=== PATIENT | male | born 1930 | race Caucasian/White ===

== ENCOUNTER 2016-11-11 12:13 | Inpatient (IN) | payer MEDICARE ==
[~2016-11-11] VITALS: Ht 188 cm; Wt 88.3 kg
[2016-11-11] VITALS (11 sets, daily range): BP systolic 88–123; BP diastolic 44–64; PULSE 64–82; RESP 15–24; O2SAT 95–100
[~2016-11-11 12:13] MED LIST: ALBUINHPP INH; FUR80 PO; PROT40T PO; SYMINH INH; ZES5; [UNRECOGNIZED DRUG - REMARK] INH; [UNRECOGNIZED DRUG - REMARK] ORAL
--- NOTE | 2016-11-11 12:39 | ED.REPORT ---
HPI-General Illness Date of Service Nov 11, 2016 ED Provider: Dr. Peralta The pt is an 86 y/o male with a hx of frequent falls recently, COPD, CHF, HTN, and A-fib who presents to the ED from [place] complaining of multiple falls in the past week. The pt fell out of bed a few days ago and reports a nose injury. Associated sx include bruising on the face and on both arms. He did not lose consciousness. His alcohol level is zero. Nursing Notes Stated Complaint: MULTIPLE FALLS Chief Complaint: Multiple Trauma/Fall Nursing Notes Reviewed: Yes Allergies: Coded Allergies: oxycodone (Verified Allergy, Unknown, 11/11/16) prednisone (Verified Allergy, Unknown, 11/11/16) Scheduled ([Second HTN Med]) 1 TAB ORAL DAILY ([second inhaler]) 2 PUFFS INH BID Albuterol-Expunged Drug, Do Not Renew! (Albuterol-Expunged Drug, Do Not Renew!) 90 Mcg Puff 2 PUFFS INH Q4 Gnisk-Cdyabh-Snuwraox Drug, Do Not Renew! (Symbicort 160/4.5mcg-Expunged Drug, Do Not R) 1 Puff Inha 1 PUFF INH DAILY PRIME WITH 1 PUMP PRIOR TO INITIAL USE. *SHAKE WELL*RINSE MOUTH AFTER EACH USE* Furosemide-Expunged Drug, Do Not Renew! (Furosemide-Expunged Drug, Do Not Renew! ) 80 Mg Tablet 80 MG PO DAILY Take one tablet daily Pantoprazole-Expunged Drug, Do Not Renew! (Protonix-Expunged Drug, Do Not Renew! ) 40 Mg Tablet. 40 MG PO BID 40 MG Miscellaneous Medications ([Lisinopril]) General Time Seen by MD: 12:38 Chief Complaint Other (multiple falls) Hx Obtained From: Patient Arrived By: Walk-in Sudden in Onset?: Yes Onset Occurred: 1 week ago Symptom Duration: 1 week Location: : Nose Quality: Painful Radiation: : Does not radiate Severity: Current: Mild Severity: Maximum: Mild Recent Healthcare: No recent doctor visit Similar Sx Previous: No Past Medical History Past Medical History Reports: COPD, Congestive heart failure, Hypertension Reports: Atrial fibrillation Past Surgical History Thoracotomy Reports: Tonsillectomy Smoking History Unknown if Ever Smoker Social History Lives alone Alcohol Use: 1-3 per week Other Social History: Good social support Ambulatory Status Independent Review of Systems Reports: multiple falls Reports: bruising on the face and both arms Full Review of Systems Neurologic: Denies: Change LOC Complete sys rev & neg: except as marked. Physical Exam Vital Signs Vital Signs Date Time Temp Pulse Resp B/P Pulse Ox O2 Delivery O2 Flow Rate FiO2 11/11/16 15:30 66 18 100 Room Air 11/11/16 14:30 64 15 104/46 100 Room Air 11/11/16 13:30 70 18 102/44 99 Room Air 11/11/16 12:26 36.6 68 16 97/48 96 Room Air Initial VS: Reviewed Head / Eyes: Atraumatic, Normocephalic Neck: Supple, Non-tender, Full range of motion Abdomen / GI: Soft, Non-tender, No guarding, No rebound, No distention Extremities: Vascular intact, Neuro intact, No swelling, No tenderness Skin: Warm, Dry, No cyanosis Neurologic: Alert, Oriented, Nonfocal General/Constitutional: Awake, Alert, Well appearing, Cooperative Head / Eyes: Atraumatic, Normocephalic, PERRL Respiratory / Chest: Atraumatic, Breath sounds NL, Breath sounds = bilat, No respiratory distress, No rales, No rhonchi, No wheezing Cardiovascular: Heart rate NL, Regular rhythm, Heart sounds NL, No gallop, No murmurs, No rubs Severe lower extremity edema Upper Extremities Upper Extremity / MS: Atraumatic, Full range of motion, No erythema, No deformity, Neurologic intact, Vascular intact Bruise behind right shoulder Multiple bruises of varied age on the dorsal aspect of right upper and lower arm with skin tear. Old pressure wound at the medial aspect of the left upper arm. Bruised dorsum of the left hand Lower Extremity / Pelvis / MS: Atraumatic, Full range of motion, No swelling, Non-tender, No erythema, No deformity, Neurologic intact, Vascular intact Small wound below the right knee anteriorly Rectum / Perineum: Atraumatic, Blood - occult heme -, chief controller tower passed, No gross blood Hard brown stool. Interpretation & Diagnostics PROCEDURE: CT FACE WITHOUT CONTRAST ([id number]) IMPRESSION: No facial bone fractures identified on CT. Suboptimal examination due to motion artifacts. Dictated by: Skyler Herrera M.D. on 11/11/2016 at 14:44 Approved by: Skyler Herrera M.D. on 11/11/2016 at 14:48 Lab Results Interpretation Result Diagram: 11/11/16 1305 11/11/16 1305 Test 11/11/16 13:05 11/11/16 14:06 White Blood Count 7.1th/mm3 (3.8-10.1) Red Blood Count 2.78mil/mm3 (4.40-5.80) Hemoglobin 7.0g/dL (13.8-17.2) Hematocrit 22.7% (41.0-50.0) Mean Corpuscular Volume 81.7fL (81-100) Mean Corpuscular Hemoglobin 25.2pg (27.0-35.0) Mean Corpuscular Hemoglobin Concent 30.8% (32.0-37.0) Red Cell Distribution Width 22.6% (12.3-15.4) Platelet Count 315bil/L (150-400) Neutrophils (%) (Auto) 77.1% (40-74) Lymphocytes (%) (Auto) 11.2% (14-46) Monocytes (%) (Auto) 8.9% (4-12) Eosinophils (%) (Auto) 2.1% (0-5) Basophils (%) (Auto) 0.1% (0-3) Reticulocyte Count,Calculated 2.2% (0.6-2.6) Prothrombin Time 11.1sec (8.1-12.5) Prothromb Time International Ratio 1.04ratio Sodium Level 135mEq/L (134-144) Potassium Level 5.0mEq/L (3.5-5.2) Chloride Level 96mEq/L (97-108) Carbon Dioxide Level 24mmol/L (18-29) Blood Urea Nitrogen 87mg/dL (8-27) Creatinine 2.40mg/dL (0.76-1.27) Estimat Glomerular Filtration Rate 28mL/min (>59) Glucose Level 122mg/dL (60-99) Calcium Level 8.9mg/dL (8.5-10.1) Magnesium Level 1.9mg/dL (1.6-2.6) Iron Level 24ug/dL (35-150) Total Iron Binding Capacity 330ug/dL (250-450) Percent Iron Saturation 7%sat (15-50) Unsaturated Iron Binding 306.1ug/dL Ferritin 40ng/mL (30-400) Total Bilirubin 0.7mg/dL (0.0-1.2) Aspartate Amino Transf (AST/SGOT) 37U/L (0-50) Alanine Aminotransferase (ALT/SGPT) 21U/L (0-44) Alkaline Phosphatase 211U/L (25-160) Troponin T 0.097ug/L (0.0-0.011) Total Protein 6.4g/dL (6.4-8.4) Albumin 3.4g/dL (3.4-5.0) Hold Cabrera Top Tube Received (Received) Alcohols < 10mg/dL (0-10) Urine Color Yellow (YELLOW) Urine Appearance Clear (CLEAR,HAZY) Urine pH 5.5 (5.0-8.0) Urine Specific [place] 1.010 (1.003-1.035) Urine Protein Negativemg/dL (NEG,TRACE) Urine Glucose (UA) Negativemg/dL (NEGATIVE) Urine Ketones Negativemg/dL (NEGATIVE) Urine Occult Blood Negative (NEGATIVE) Urine Nitrite Negative (NEGATIVE) Urine Bilirubin Negative (NEGATIVE) Urine Urobilinogen Normalmg/dL (NORMAL) Urine Leukocyte Esterase Negative (NEGATIVE) Urine RBC 0-2/hpf (0-2) Urine WBC 0-5/hpf (0-5) Urine Epithelial Cells Occasional/hpf (NONE-MOD) Urine Crystals None seen (NONE SEEN) Urine Bacteria Few/hpf (NONE-FEW) Urine Hyaline Casts Occasional/lpf (NONE) Urine Granular Casts Occasional (NONE SEEN) Urine Waxy Casts None seen (NONE SEEN) Urine Red Blood Cell Casts None seen (NONE SEEN) Urine White Blood Cell Casts None seen (NONE SEEN) Urine Mucus Present (None Seen) Urine Trichomonas None seen (NONE SEEN) Urine Yeast None (NONE SEEN) Urinalysis Comment None Urine Culture Reflexed Not indicated ECG Interpretation ECG Interpretation: A-fib. Rate 68. Ventricular premature complex. Low voltage, extremity leads. Nonspecific T abnormalities, latera leads. Prolonged QT interval. Time: 12:56 Interpreted by: ED physician X-Ray Chest Interpretation Chest Xray Interpretation: IMPRESSION: 1. Cardiomegaly and mild to moderate vascular congestion. 2. Increased attenuation at the left lung base may represent scarring or atelectasis. However, pneumonia or pulmonary contusion may also have this appearance. 3. Probable trace left-sided pleural effusion. Dictated by: Seferino Fierro M.D. on 11/11/2016 at 13:07 Approved by: Seferino Fierro M.D. on 11/11/2016 at 13:08 View: Portable, 1 view Interpretation / Wet Read by: Interpret - Radiologist CT Head Interpretation IMPRESSION: 1. No acute intracranial abnormalities. 2. Probable small right frontal subdural hygroma. 3. Moderate to severe cerebral volume loss and mild chronic microvascular ischemic changes. 4. Small left frontal scalp contusion. Dictated by: Skyler Herrera M.D. on 11/11/2016 at 13:54 Approved by: Skyler Herrera M.D. on 11/11/2016 at 14:01 Study: Head CT no contrast Interpretation / Wet Read by: Interpret - Radiologist Re-Eval/Medical Decision Source of Hx: Old records Time of Eval: 15:21 Re-Evaluation/Progress Note: Rechecked pt. Discussed lab results, imaging results,diagnosis and plan to admit. Pt understands and agrees with the plan for admission. All questions addressed. Consultation : Referral / Consult Name: JORGE SALAZAR DO Consulted With: Hospitalist Call Returned at: 16:03 Deputy Sheriff Bailiff: Will see patient, Agrees with eval, Agrees with plan, Accepts admit Counseled Regarding: Diagnosis, Lab results, Need for admission Discharge & Departure Primary Impression: Severe anemia Additional Impression: Acute renal failure Acute renal failure type: unspecified Qualified Code: N17.9 - Acute kidney failure, unspecified Disposition: ADMITTED TO HOSPITAL Referrals: [facility] (PCP) Scribe Attestation Portions of this note were transcribed by Rosa Matson. I,, personally performed the history,physical exam and medical decision-making;I reviewed and confirmed the accuracy of the information in the transcribed note. Signed by Gloria Ayala. 11/11/16 copies to: [facility] Dileep Peralta MD Nov 11, 2016 12:39 Rosa Matson Nov 11, 2016 12:46
[2016-11-11 13:24] LABS: BASOPHILS % (AUTO) 0.1 % (0-3); EOSINOPHILS % (AUTO) 2.1 % (0-5); MONOCYTES % (AUTO) 8.9 % (4-12); Mean Corpuscular Hemoglobin 25.2 pg (27.0-35.0); Mean Corpuscular Volume 81.7 fL (81-100); NEUTROPHILS % (AUTO) 77.1 % (40-74); Platelet Count 315 bil/L (150-400)
[2016-11-11 13:36] LABS: INR 1.04 ratio
[2016-11-11 13:55] LABS: Magnesium 1.9 mg/dL (1.6-2.6)
[2016-11-11 13:57] LABS: TROPONIN T 0.097 ug/L (0.0-0.011)
--- NOTE | 2016-11-11 14:03 | DRSVH ---
PROCEDURE: CT BRAIN WITHOUT CONTRAST ([id number]) INDICATIONS: trauma TECHNIQUE: Noncontrast 4.5 mm thick angled axial sections acquired from the foramen magnum to the vertex, with c oronal reformats. COMPARISON: None. FINDINGS: Image quality: Excellent. CSF spaces: Basal cisterns are patent. Probable small right frontal subdural hygroma versus fatty as ymmetric dilated CSF space secondary to cerebral atrophy. The ventricles are symmetric in size and s hape. Brain: No intracranial bleeds or masses. There is moderate to severe cerebral volume loss for age, with resultant ventricular and sulcal prominence. There are mild periventricular and deep white mann er chronic small vessel ischemic changes. There is intracranial internal carotid artery atherosclero sis. Skull and face: Probable postsurgical changes in the left temporal bone. Calvarium and visualized fa cial bones appear intact, without suspicious lesions. Left frontal soft tissue contusion. Sinuses: Visualized sinuses and mastoids are clear. IMPRESSION: 1. No acute intracranial abnormalities. 2. Probable small right frontal subdural hygroma. 3. Moderate to severe cerebral volume loss and mild chronic microvascular ischemic changes. 4. Small left frontal scalp contusion. Dictated by: Skyler Herrera M.D. on 11/11/2016 at 13:54 Approved by: Skyler Herrera M.D. on 11/11/2016 at 14:01
--- NOTE | 2016-11-11 14:10 | DRSVH ---
PROCEDURE: X-RAY CHEST ONE VIEW, PORTABLE ([id number]) INDICATIONS: syncope TECHNIQUE: One view of the chest was acquired. COMPARISON: [facility], , CHEST 1VW (PORTABLE), 09/09/2012, 20:11. FINDINGS: Surgical changes and devices: None. Lungs and pleura: Is an unusual appearance of the left hemithorax with increased attenuation at the l eft lung base that partially obscures the left heart border and a portion of the left costophrenic an gle. No pneumothorax is evident. Prominent perihilar lung markings and increased hilar vascularity appears to be present. Mediastinum: Mediastinal contours appear normal. The heart appears enlarged. There is aortic ather osclerosis. Bones and chest wall: No suspicious bony lesions. Overlying soft tissues appear unremarkable. IMPRESSION: 1. Cardiomegaly and mild to moderate vascular congestion. 2. Increased attenuation at the left lung base may represent scarring or atelectasis. However, pneu monia or pulmonary contusion may also have this appearance. 3. Probable trace left-sided pleural effusion. Dictated by: Seferino Fierro M.D. on 11/11/2016 at 13:07 Approved by: Seferino Fierro M.D. on 11/11/2016 at 13:08
[2016-11-11 14:27] LABS: APPEARANCE,URINE CLEAR (CLEAR,HAZY); COLOR,URINE YELLOW (YELLOW)
[2016-11-11 14:28] LABS: OCCULT BLOOD,URINE NEGATIVE (NEGATIVE); PH,URINE 5.5 (5.0-8.0); UROBILINOGEN,URINE NORMAL (NORMAL)
--- NOTE | 2016-11-11 14:51 | DRSVH ---
PROCEDURE: CT FACE WITHOUT CONTRAST ([id number]) INDICATIONS: trauma TECHNIQUE: Noncontrast 1.5 mm thick axial images acquired from the mandible through the frontal sinuses, with co eduin and sagittal reformatting. For radiation dose reduction, the following was used: automated ex posure control. COMPARISON: None. FINDINGS: Image quality: Motion artifacts in mandible. Bones and teeth: There is is a chronic focus in the right superior orbital rim, probably a bone tim nd. Orbital smith are intact. Sinus smith show no fracture or deformity. Nasal bones and septum are intact. Visualized portions of the mandible demonstrate no fractures or subluxation. Zygomatic arc hes are intact. Pterygoid plates are intact. Visualized portions of the skull base and auditory can als are intact. Sinuses: Paranasal sinuses are aerated, without fluid levels, mucosal thickening, or mucoceles. Mas toid air cells are aerated. Soft tissues: No edema, masses, or fluid collections. No enlarged lymph nodes. No soft tissue lace rations or debris. Vascular: Visualized vascular structures appear normal in the absence of contrast. Bony vascular fo ramina and canals are intact. IMPRESSION: No facial bone fractures identified on CT. Suboptimal examination due to motion artifacts . Dictated by: Skyler Herrera M.D. on 11/11/2016 at 14:44 Approved by: Skyler Herrera M.D. on 11/11/2016 at 14:48
[2016-11-11 16:00] LABS: Unsaturated Iron Binding 306.1 ug/dL
[2016-11-11] MEDS ORDERED: Polyethylene Glycol (PEG) 17 Gm Powder PO PRN (16:40)
[2016-11-11] MEDS ORDERED: Ondansetron 2 mg/mL 2 mL Inj IVPUSH PRN (16:40)
[2016-11-11] MEDS ORDERED: Alum-Mag Hydrox-Simeth 30 mL Suspension PO PRN (16:40)
--- NOTE | 2016-11-11 17:01 | PCM.HPMED ---
Subjective Date of Service Nov 11, 2016 Primary Provider: Admitting Physician: Arcadio Rico DO [facility]: Arcadio Rico DO Admit Status: From the Emergency Department Chief Complaint: ground level fall and anemia History of Present Illness: Patient is an 86 yr old male with past medical history significant for COPD, CHF , hypertension, Chronic Kidney Disease, GERD, Upper GI bleed from esophageal ulcers, Chronic Atrial Fibrillation on ASA and not on anticoagulation who presents to the ED from his primary care doctor at the [place] complaining of multiple episodes of ground-level falls. He is accompanied by his sister. Patient states that he had multiple falls starting last 11/05/16. He states that during the first episode, he fell out of bed and hit his face. He reports other episodes since that time of falling and suffering from multiple bruises and lacerations as a result. Patient lives by himself and family was made aware of his falls. His sister therefore made an appointment with his primary care physician at the [place] clinic to further assess him. Patient notes that he has an extensive history of alcohol use and that he drinks about 2 martinis several times a week. He states that he has not had any alcohol for the past 4-5 days and does not believe that his falls are associated to alcohol use. Patient denies headaches, visual changes, syncopal episodes, nausea, vomiting, hematemesis, abdominal pain, diarrhea, constipation, hematochezia and melena. He reports that he has had minimal stamina lately, taking more naps, feeling more tired, is SOB with walking, edema, has some chest pain with exertion but not currently, and that his arms are painful as a result of the falls. He notes that in 2012, he was diagnosed with an upper GI bleed as a result of esophageal ulcers and at that time he was experiencing melena. He has had 3 colonoscopy in the past which showed polyps that were removed. In the ED, patient's vital signs were as follows: Temp 36.6 HR 68 RR 16, BP 97/ 48 and 96 % on RA. Labs were significant for Hgb 7.0, Hct 22.7, BUN 87, Cr. 2.40. Troponin 0.097. EKG showed A fib with HR 68, prolonged QT. CT of the face was unremarkable for facial fractures, CT of the head showed no acute intracranial abnormalities, CXR showed cardiomegaly with mild to moderate vascular congestion. Patient was admitted for further evaluation of ground level falls and anemia as well as various other lab abnormalities. Review of Systems: The comprehensive review of systems was conducted with the patient and found to be negative except as above in the history of present illness. Allergies Coded Allergies: oxycodone (Verified Allergy, Unknown, 11/11/16) prednisone (Verified Allergy, Unknown, 11/11/16) Home Medications Albuterol, Symbicort, furosemide 80 mg, Lantanoprost, AREDS2 Multivitamins, omeprazole 20 mg, tiotropium, Vitamin D3, Cyanocibalamin, Ferrous Sulfate, Folic Acid PMH COPD, CHF, hypertension, Chronic Kidney Disease, GERD, Upper GI bleed from esophageal ulcers, Chronic Atrial Fibrillation on ASA and not on anticoagulation , History of chronic alcohol use, but denies any delirium tremens or withdrawal Surgical History Thoracotomy Tonsillectomy Ear surgery twice left arm surgery for nerve damage Family History Family history is significant for father and paternal grandmother with colon cancer, mother at 92 from complications of CHF Social History Hx Alcohol Use: Yes (2-3 martinis daily) Hx Substance Use: No Hx Tobacco Use: Yes Smoking Status: Former Smoker, Unknown if Ever Smoker Years of Smokin Living Arrangement: Alone Exam Vital Signs Vital Sign - Last Date Time Temp Pulse Resp B/P Pulse Ox O2 Delivery O2 Flow Rate FiO2 11/11/16 15:30 66 18 100 Room Air 11/11/16 14:30 104/46 11/11/16 12:26 36.6 Exam General: Patient is lying comfortably on bed, AAOX3, not in acute distress, cooperative . HEENT: head normocephalic, evidence of trauma of face, echymoses around eyes, PERRLA, EOMI, no scleral icterus, noninjected conjunctiva Neck: neck supple, non-tender, no lymphadenopathy, trachea midline, positive JVD CV: irregularly irregular, s1 and s2 heard, grade 2/6 systolic murmur heard best on RUSB, radial pulses equal bilaterally, no rubs or gallops, 2+ pitting edema of lower extremities bilaterally Lungs: coarse breath sounds of lung bases bilaterally, no wheezes, rales or rhonchi, no increased work of breathing Abdomen: protuberant abdomen, normoactive bowel sounds on 4Q, soft, non- distended, non-tender to palpation, appears to have a hernia on the left side of abdomen Skin: warm, multiple bruises of varied age,skin tears, lacerations of UE on bilaterally at different stages of healing Musculoskeletal: UE and LE strength equal bilaterally, full ROM bilaterally Neuro: Grossly neurologically intact, cranial nerves II through XII intact, no dyskinesia, dysmetria, or dysdiadochokinesia noted, sensation intact in extremities Psych: Normal mood and affect Lab and Diagnostics Labs Laboratory Tests Test 11/11/16 13:05 11/11/16 14:06 11/11/16 17:45 White Blood Count 7.1th/mm3 (3.8-10.1) Red Blood Count 2.78mil/mm3 (4.40-5.80) Hemoglobin 7.0g/dL (13.8-17.2) Hematocrit 22.7% (41.0-50.0) Mean Corpuscular Volume 81.7fL (81-100) Mean Corpuscular Hemoglobin 25.2pg (27.0-35.0) Mean Corpuscular Hemoglobin Concent 30.8% (32.0-37.0) Red Cell Distribution Width 22.6% (12.3-15.4) Platelet Count 315bil/L (150-400) Neutrophils (%) (Auto) 77.1% (40-74) Lymphocytes (%) (Auto) 11.2% (14-46) Monocytes (%) (Auto) 8.9% (4-12) Eosinophils (%) (Auto) 2.1% (0-5) Basophils (%) (Auto) 0.1% (0-3) Reticulocyte Count,Calculated 2.2% (0.6-2.6) Prothrombin Time 11.1sec (8.1-12.5) Prothromb Time International Ratio 1.04ratio Sodium Level 135mEq/L (134-144) Potassium Level 5.0mEq/L (3.5-5.2) Chloride Level 96mEq/L (97-108) Carbon Dioxide Level 24mmol/L (18-29) Blood Urea Nitrogen 87mg/dL (8-27) Creatinine 2.40mg/dL (0.76-1.27) Estimat Glomerular Filtration Rate 28mL/min (>59) Glucose Level 122mg/dL (60-99) Calcium Level 8.9mg/dL (8.5-10.1) Magnesium Level 1.9mg/dL (1.6-2.6) Iron Level 24ug/dL (35-150) Total Iron Binding Capacity 330ug/dL (250-450) Percent Iron Saturation 7%sat (15-50) Unsaturated Iron Binding 306.1ug/dL Ferritin 40ng/mL (30-400) Total Bilirubin 0.7mg/dL (0.0-1.2) Aspartate Amino Transf (AST/SGOT) 37U/L (0-50) Alanine Aminotransferase (ALT/SGPT) 21U/L (0-44) Alkaline Phosphatase 211U/L (25-160) Troponin T 0.097ug/L (0.0-0.011) Total Protein 6.4g/dL (6.4-8.4) 5.8g/dL (6.4-8.4) Albumin 3.4g/dL (3.4-5.0) Hold Cabrera Top Tube Received (Received) Alcohols < 10mg/dL (0-10) Urine Color Yellow (YELLOW) Urine Appearance Clear (CLEAR,HAZY) Urine pH 5.5 (5.0-8.0) Urine Specific [place] 1.010 (1.003-1.035) Urine Protein Negativemg/dL (NEG,TRACE) Urine Glucose (UA) Negativemg/dL (NEGATIVE) Urine Ketones Negativemg/dL (NEGATIVE) Urine Occult Blood Negative (NEGATIVE) Urine Nitrite Negative (NEGATIVE) Urine Bilirubin Negative (NEGATIVE) Urine Urobilinogen Normalmg/dL (NORMAL) Urine Leukocyte Esterase Negative (NEGATIVE) Urine RBC 0-2/hpf (0-2) Urine WBC 0-5/hpf (0-5) Urine Epithelial Cells Occasional/hpf (NONE-MOD) Urine Crystals None seen (NONE SEEN) Urine Bacteria Few/hpf (NONE-FEW) Urine Hyaline Casts Occasional/lpf (NONE) Urine Granular Casts Occasional (NONE SEEN) Urine Waxy Casts None seen (NONE SEEN) Urine Red Blood Cell Casts None seen (NONE SEEN) Urine White Blood Cell Casts None seen (NONE SEEN) Urine Mucus Present (None Seen) Urine Trichomonas None seen (NONE SEEN) Urine Yeast None (NONE SEEN) Urinalysis Comment None Urine Culture Reflexed Not indicated Result Diagram: 11/11/16 1305 11/11/16 1305 X-Rays, CTs and MRIs PROCEDURE: CT BRAIN WITHOUT CONTRAST ([id number]) IMPRESSION: 1. No acute intracranial abnormalities. 2. Probable small right frontal subdural hygroma. 3. Moderate to severe cerebral volume loss and mild chronic microvascular ischemic changes. 4. Small left frontal scalp contusion. Dictated by: Skyler Herrera M.D. on 11/11/2016 at 13:54 Approved by: Skyler Herrera M.D. on 11/11/2016 at 14:01 PROCEDURE: X-RAY CHEST ONE VIEW, PORTABLE ([id number]) IMPRESSION: 1. Cardiomegaly and mild to moderate vascular congestion. 2. Increased attenuation at the left lung base may represent scarring or atelectasis. However, pneumonia or pulmonary contusion may also have this appearance. 3. Probable trace left-sided pleural effusion. Dictated by: Seferino Fierro M.D. on 11/11/2016 at 13:07 PROCEDURE: CT FACE WITHOUT CONTRAST ([id number]) FINDINGS: Image quality: Motion artifacts in mandible. Bones and teeth: There is is a chronic focus in the right superior orbital rim , probably a bone island. Orbital smith are intact. Sinus smith show no fracture or deformity. Nasal bones and septum are intact. Visualized portions of the mandible demonstrate no fractures or subluxation. Zygomatic arches are intact. Pterygoid plates are intact. Visualized portions of the skull base and auditory canals are intact. Sinuses: Paranasal sinuses are aerated, without fluid levels, mucosal thickening, or mucoceles. Mastoid air cells are aerated. Soft tissues: No edema, masses, or fluid collections. No enlarged lymph nodes. No soft tissue lacerations or debris. Vascular: Visualized vascular structures appear normal in the absence of contrast. Bony vascular foramina and canals are intact. IMPRESSION: No facial bone fractures identified on CT. Suboptimal examination due to motion artifacts. Dictated by: Skyler Herrera M.D. on 11/11/2016 at 14:44 Additional Diagnostics: Endoscopy on 10/03/2012 IMPRESSION: 1. Large deep esophageal ulcers extending from mid esophagus to the gastroesophageal junction and into the cardia. Not actively bleeding. 2. Mild chronic active gastritis. 3. Duodenitis. 4. Large hiatal hernia. RECOMMENDATION: Most likely etiology for his gastrointestinal bleeding and anemia appears to be blood loss from of esophageal ulcers. They seem to be healing well without any evidence of active bleeding at this time. Will continue the patient on Protonix drip. He may, however, resume a clear liquid diet without any red. Will not advance his diet perhaps until tomorrow or day after tomorrow. Continue to monitor his hemoglobin and hematocrit closely. He is to remain off of Coumadin at this time due to risk of recurrent bleeding. It is reasonable to transfuse with two more units of packed red blood cells to bring his hemoglobin above 9 or close to 10. I will follow along with you. Poncho Valle MD 09/10/12 1642 <Electronically signed by Poncho Valle MD>10/03/12 7081 Assessment & Plan Patient is an 86 yr old male with past medical history significant for COPD, CHF , hypertension, Chronic Kidney Disease, GERD, Upper GI bleed from esophageal ulcers, Chronic Atrial Fibrillation on ASA and not on anticoagulation who presents to the ED from his primary care doctor at the [place] complaining of multiple episodes of ground-level falls.the ED, patient was afebrile and hypotensive. Labs were significant for Hgb 7.0, Hct 22.7, BUN 87, Cr. 2.40. Troponin 0.097. EKG showed A fib with HR 68, prolonged QT. CT of the face was unremarkable for facial fractures, CT of the head showed no acute intracranial abnormalities, CXR showed cardiomegaly with mild to moderate vascular congestion. Patient was admitted for further evaluation of ground level falls and anemia as well as various other lab abnormalities. Normocytic anemia, present on admission, under evaluation. -Hgb/ Hct on admit was 7.0/ 22.7. MCV81.7 -Patient denies any signs of active bleeding. -BUN/Cr 87/2.4 ratio: 36.25 , could be consistent with possible GI bleed -Possible etiologies include anemia of chronic kidney disease, acute GI blood loss given hx of esophageal ulcers, pernicious anemia given hx of alcohol use -Stool guiac in the ED was negative -Type, Cross and Transfuse if <7. -Patient has received 1 unit of PRBCs. -Check H/H q 6 hrs -Ordered Vit B12, folate -Iron panel showed low Iron at 24, normal TIBC and 7% saturation. Patient takes Iron supplements at home. Continue -Give Protonix 40 mg po bid given hx of esophageal ulcers -Ordered non contrast CT of Abdomen and Pelvis Ground Level Falls, present on admission, under investigation -Patient denies syncopal episode -Possible etiologies include anemia, alcohol use, hypotension -alcohol was negative on admit Acute on Chronic Kidney Disease, present on admission, ongoing -BUN/Cr on admission was 87/ 2.4 -Records show that on 09/06/16, patient's BUN/Cr was 103/ 2.42 -Given patient is fluid overloaded, IV Lasix 40 mg given -Continue to monitor CMP -Consider nephrology consult in the AM Chronic Congestive Heart Failure of unknown type, present on admission, ongoing -Patient takes furosemide 80 mg po at home -Records show that he may also be taking spironolactone, and lisinopril but this has yet to be confirmed -Patient is edematous, positive JVD, crackles on lung exam bilaterally, and CXR shows cardiomegaly with mild to moderate vascular congestion and left-sided pleural effusion -Ordered ECHO -Strict Is and Os, daily weights -Fluid restriction of 1.5 L -Consider Cardiology consult in am Elevated alkaline phosphatase, present on admission, under investigation -AST normal at 37, ALT 21, Alk Phos 211 -concern for metastatic cancer. will need to investigate further -although ALT and AST are normal, does not rule out possibility of cirrhosis given hx of alcohol use -Ordered non contrast abdominal and pelvis CT Elevated Troponin, present on admission, under investigation -Patient denies chest pain. -EKG shows A fib with HR of 68, no ST changes -Troponin on admit 0.097 -Continue to trend troponin q6hrs -Monitor in Telemetry -Possible etiologies include chronic kidney disease vs ischemia Chronic Atrial Fibrillation, present on admission, ongoing -EKG shows A Fib with HR of 68 -Patient denies being on anticoagulation. 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 Code Status: Patient is DNR/DNI Pain Evaluation: Adequate Pain Control GI Prophylaxis: Proton Pump Inhibitor VTE Mechanical Devices: Intermittant Pneumatic CD Resuscitation Status: DNR/DNI:Do Not Resuscitate/Intubate Time spent 60 minutes Attending Statement I have seen and evaluated patient at bedside in addition to directly supervising care provided by resident physician on 11/11/2016. I agree with above documentation. Kaylin Pearson DO Nov 11, 2016 17:01 Arcadio Rico DO Nov 11, 2016 22:15
--- NOTE | 2016-11-11 17:20 | NUR ---
Admission Patient arrived to floor at approx 1700. Oriented x 3 yet patient is very [employer] [place]. No hearing aids noted. Patient is alone upon arrival. Unable to recall his medications that he takes at home. Oriented to room and hospital policies. Bruises noted on body which patient states are from him falling. Bed alarm in place. Bed also locked and in low position. Continue frequent rounding. Addendum: 11/11/16 at 1725 by NADIA DARDEN RN VINOD found hearing aid which is now worn in R ear.
[2016-11-11] MEDS ORDERED: Furosemide 10 mg/mL 4 mL Inj IVPUSH ONE ×2 (17:50→23:50)
--- NOTE | 2016-11-11 18:38 | NUR ---
Med Rec Unable to do med rec with patient. He was unable to describe medications. Thought he had a med list in belongings but did not. Unable to remember his daughter's phone to call her. States that he gets some meds at the [facility]. notified.
--- NOTE | 2016-11-11 18:44 | NUR ---
Blood Transfusion This RN did notify MD of orders recieved from ED to infuse two units of PRB's. MD reports is he not able to find order to DC and confirmed only to infuse 1 unit of PRB.
--- NOTE | 2016-11-11 20:43 | NUR ---
HYPOTENSION MD Pearson paged regarding hypotension and critical H/H. Hematocrit 6.7. Hgb 22.7
[2016-11-11 21:16] LABS: TROPONIN T 0.087 ug/L (0.0-0.011)
[2016-11-11] MEDS ORDERED: Albuterol 2.5 mg/3 mL Inhalation Solution NEB PRN (21:18)
--- NOTE | 2016-11-11 21:41 | DRSVH ---
PROCEDURE: CT ABDOMEN AND PELVIS WITHOUT CONTRAST ([id number]) INDICATIONS: anemia TECHNIQUE: After the administration of oral contrast, 5 mm thick sections acquired from the diaphragms to the sy mphysis. 5 mm coronal and sagittal reformats were performed. For radiation dose reduction, the foll owing was used: automated exposure control, adjustment of mA and/or kV according to patient size. COMPARISON: Merged With [facility], CR, XR CHEST 1VW (PORTABLE), 11/11/2016, 13:02. FINDINGS: Image quality: Excellent. ABDOMEN: Lung bases: Minimal bilateral pleural effusions, right greater than left. Solid organs: Liver and spleen are normal in size. Gallbladder is unremarkable. Pancreas is normal in size. No adrenal nodules. Both kidneys are normal in size, without hydronephrosis. There are tw o punctate calcifications within the left renal pole, nonobstructing. Peritoneum and bowel: Bowel loops demonstrate normal wall thickness and caliber. Minimal fluid is no irene within the paracolic gutters bilaterally, right greater than left. Colonic diverticula are presen t without associated inflammatory change. Nodes and vessels: No retroperitoneal or mesenteric adenopathy by size criteria. Aorta and inferior vena cava are normal in size. 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 In addition, there is approximate 60-70% stenosis at the origin of the renal arteries bilaterally. Miscellaneous: No ventral hernias. PELVIS: Genitourinary: Bladder wall thickness is normal. The prostate gland is enlarged. Miscellaneous: Fat-containing inguinal hernias are present. Bones: No suspicious bony lesions. Compression deformity is identified at T10. No priors are availab le for comparison with visualization of this area. priors are available for comparison with visualization of this area. IMPRESSION: 1. Minimal pleural effusions. 2. Prostate hypertrophy. Recommend correlation with PSA levels. 3. Diverticulosis. 4. Nonobstructing left renal calculi. Dictated by: Claudia Conner M.D. on 11/11/2016 at 21:35 Approved by: Claudia Conner M.D. on 11/11/2016 at 21:40
[2016-11-12] VITALS (10 sets, daily range): BP systolic 95–116; BP diastolic 49–74; PULSE 64–74; RESP 18–26; O2SAT 97–100
--- NOTE | 2016-11-12 01:26 | NUR ---
PVR PT voiding small amounts. BLadder scan showed 432ml PVR. PT stood and voided another 100 after. PT does not want straight cath. WIll CTM. PT does not feel distended.
--- NOTE | 2016-11-12 06:31 | NUR ---
NOC PT received 1UPRBC's as ordered. H/H up slightly. NO s/s of active bleeding noted. B/P remains hypotensive with is his baseline per pt. MD Dan aware. NO interventions ordered. CT of abdomen/pelvis done. Fluid restriction lifted this am per DR Pearson. PT noted to have dyspnea at rest. RR up to 26 with activity. PT has urinary frequency and has been voiding every hour at least. Voids best standing at bedside. Pt is a 1 person assist with FWW to mobilize. PT needs a lot of encouragement to move, but is able to do quite well. PT noted to have LUE and BLE pitting edema noted. LLE is worse than right. Skin is noted to have many bruises and abrasions and they have all been added to skin assessment. Telfa applied to 3 open skin tears. Lasix given after blood because b/p was too low prior. Tele has been in SR. Will continue to monitor H/H and creatinine. PT will likely need SNF placement. PT is agreeable to this and states "I can no longer live at my house." PT having a lot of difficulty with ADL's. BUE are very tender to touch and pt yells when they are touched. HE refused tylenol multiple times.
[2016-11-12 06:50] LABS: BASOPHILS % (AUTO) 0.2 % (0-3); EOSINOPHILS % (AUTO) 5.8 % (0-5); MONOCYTES % (AUTO) 10.7 % (4-12); Mean Corpuscular Hemoglobin 25.5 pg (27.0-35.0); Mean Corpuscular Volume 81.9 fL (81-100); NEUTROPHILS % (AUTO) 67.2 % (40-74); Platelet Count 272 bil/L (150-400)
[2016-11-12 07:15] LABS: Magnesium 1.9 mg/dL (1.6-2.6); Phosphorus 3.9 mg/dL (2.5-4.9)
[2016-11-12 08:12] LABS: Vitamin B12 >1999 pg/mL (211-946)
[2016-11-12] MEDS ORDERED: ALBU0.63 INHALATION (09:00)
[2016-11-12] MEDS ORDERED: ALBU8.5H2 INHALATION (09:00)
[2016-11-12] MEDS ORDERED: SYMINH INHALATION (09:00)
[2016-11-12] MEDS ORDERED: FRSM80T PO (09:01)
[2016-11-12] MEDS ORDERED: MULT-666 PO (09:01)
[2016-11-12] MEDS ORDERED: OMEP20CA11 PO (09:01)
[2016-11-12] MEDS ORDERED: LATA2.5D5 AFFECT_EYE (09:01)
[2016-11-12] MEDS ORDERED: ASCO500C6 PO (09:03)
[2016-11-12] MEDS ORDERED: FERR325T6 PO (09:03)
[2016-11-12] MEDS ORDERED: TIOT18CA3 IH (09:03)
[2016-11-12] MEDS ORDERED: CHOL10008 PO (09:03)
[2016-11-12] MEDS ORDERED: ASPI325T32 PO (09:06)
[2016-11-12] MEDS ORDERED: FOLI1TAB18 PO (09:06)
--- NOTE | 2016-11-12 09:07 | NUR ---
Med history Med history obtained from [facility]. Pt. verifies most meds and adds 1/2 asa daily.
[2016-11-12] MEDS ORDERED: 0.9% Sodium Chloride 250 ML IV ONE (09:25)
[2016-11-12] MEDS: Fluticasone-Salmeterol 100-50 Inhaler INHALATION SCH ×2 (09:33→20:30)
[2016-11-12] MEDS: Pantoprazole 40 mg ER24 Tablet PO SCH ×2 (09:35→16:30)
[2016-11-12] MEDS ORDERED: Furosemide 10 mg/mL 10 mL Inj IVPUSH ONE (10:15)
[2016-11-12] MEDS ORDERED: Furosemide 10 mg/mL 4 mL Inj IVPUSH ONE (10:25)
--- NOTE | 2016-11-12 12:58 | NUR ---
Social Work: Initial Assessment Data: See initial assessment. Patient is a 86 year old male who was admitted on 11/11/16 for severe anemia and ELANA per H&P. Patient's insurance is Medicare and his PCP is the [facility]. EMR reviewed. SW met with patient to discuss discharge planning. SW role explained. Patient reports that he lives alone on [address]. Patient considers his neighbors and his daughter Lyssa to be his main sources of support. Patient confirms that his daughter Lyssa is his DPOA and that AD have been completed on his behalf. Patient states that he uses a rd walker at baseline and is able to perform all ADLs and care needs independently. Patient confirms that he drives via POV. Patient denies having a hx of home health services or SNF. Patient denies having terminal worker care insurance. Patient reports that he does receive [facility] benefits however, he is not considered services connected with the [facility]. Upon discharge, patient states that his sister Mary will transport him home. SW provided patient with a discharge planning checklist booklet and encouraged patient to call with any questions or concerns. Phone number provided. SW will continue to follow for needs. Assessment: Patient will likely return home at discharge when he is medically stable. Plan: Patient will likely return home at discharge when he is medically stable. Transportation will be provided by his sister Mary. SW will continue to follow for needs. JENNIFER Mckinney Addendum: 11/12/16 at 1305 by MICHELLE KRUSE SS Amended: Links added.
--- NOTE | 2016-11-12 13:14 | PCM.HPMED ---
Subjective Date of Service Nov 12, 2016 Primary Provider: Admitting Physician: Arcadio Rico DO Primary Care Physician: [facility] Attending Physician: Kameron Vaughn MD Chief Complaint: ground level fall and anemia History of Present Illness: Mr. Kannan Law is an 86 yr old gentleman with past medical history significant for COPD, CHF, hypertension, Chronic Kidney Disease, GERD, Upper GI bleed from esophageal ulcers 2012, Chronic Atrial Fibrillation on ASA and not on anticoagulation who presents to the ED from his [place] care doctor [facility] [place] [facility] complaining of dizziness/unsteadiness and multiple traumatic ground-level falls. 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 Patient denies headaches, visual changes, syncopal episodes, nausea, vomiting, hematemesis, abdominal pain, diarrhea, constipation, hematochezia and melena. He reports that being very week upper body strength and has been feeling more tired lately. In [address] Valle, An esophagogastroduodenoscopy revealed distal esophageal ulcers with necrotic base without evidence of active bleeding. He has had 3 colonoscopy in the past which showed polyps that were removed. He reports no episodes of hematochezia/melena or hematemesis, and states he hasn't noticed any signs or symptoms similar to his prior episode of GI bleeding. Review of Systems: The comprehensive review of systems was conducted with the patient and found to be negative except as above in the history of present illness. Allergies Coded Allergies: oxycodone (Verified Allergy, Unknown, 11/11/16) prednisone (Verified Allergy, Unknown, 11/11/16) Home Medications Albuterol, Symbicort, furosemide 80 mg, Lantanoprost, AREDS2 Multivitamins, 0meprazole 20 mg, tiotropium, Vitamin D3, Cyanocibalamin, Ferrous Sulfate, Folic Acid PMH COPD, CHF, hypertension, Chronic Kidney Disease, GERD, Upper GI bleed from esophageal ulcers, Chronic Atrial Fibrillation on ASA and not on anticoagulation , History of chronic alcohol use, but denies any delirium tremens or withdrawal Surgical History Surgical History Thoracotomy Tonsillectomy Ear surgery twice left arm surgery for nerve damage Family History father and paternal grandmother with colon cancer, mother at 92 from complications of CHF Social History Hx Alcohol Use: Yes (2-3 martinis daily) Alcoholic Drinks Per Day: 2 Hx Substance Use: No Hx Tobacco Use: Yes Smoking Status: Former Smoker, Unknown if Ever Smoker Years of Smokin Living Arrangement: Alone Exam Vital Signs Vital Sign - Last Date Time Temp Pulse Resp B/P Pulse Ox O2 Delivery O2 Flow Rate FiO2 11/12/16 10:13 65 22 95/50 11/12/16 10:02 37.0 11/12/16 09:49 97 Nasal Cannula 2.00 Intake and Output 11/11/16 11/11/16 11/12/16 Cumulative From/Thru 15:00 23:00 07:00 11/11/16 12:26 - 11/12/16 06:06 Intake Total 500 ml 578 ml 1078 ml Output Total 650 ml 890 ml 1540 ml Balance -150 ml -312 ml -462 ml Intake Oral 500 ml 300 ml 800 ml IV Total 20 ml 20 ml Packed Cells 258 ml 258 ml Output Urine Total 650 ml 890 ml 1540 ml # Voids 3 3 Exam General: Patient is lying comfortably on bed, AAOX3, not in acute distress, cooperative . HEENT: head normocephalic, evidence of trauma of face, echymoses around eyes, PERRLA, EOMI, no scleral icterus, noninjected conjunctiva Neck: neck supple, non-tender, no lymphadenopathy, trachea midline, positive JVD CV: irregularly irregular, s1 and s2 heard, grade 2/6 systolic murmur heard best on RUSB, radial pulses equal bilaterally, no rubs or gallops, 2+ pitting edema of lower extremities bilaterally Lungs: coarse breath sounds of lung bases bilaterally, no wheezes, rales or rhonchi, no increased work of breathing Abdomen: protuberant abdomen, normoactive bowel sounds on 4Q, soft, non- distended, non-tender to palpation, appears to have a hernia on the left side of abdomen Skin: warm, multiple bruises of varied age,skin tears, lacerations of UE on bilaterally at different stages of healing Musculoskeletal: UE and LE strength equal bilaterally, full ROM bilaterally Neuro: Grossly neurologically intact, cranial nerves II through XII intact, no dyskinesia, dysmetria, or dysdiadochokinesia noted, sensation intact in extremities Psych: Normal mood and affect Lab and Diagnostics Result Diagram: 9/28/17 0620 9/28/17 0620 X-Rays, CTs and MRIs PROCEDURE: CT BRAIN WITHOUT CONTRAST ([id number]) IMPRESSION: 1. No acute intracranial abnormalities. 2. Probable small right frontal subdural hygroma. 3. Moderate to severe cerebral volume loss and mild chronic microvascular ischemic changes. 4. Small left frontal scalp contusion. Dictated by: Skyler Herrera M.D. on 11/11/2016 at 13:54 Approved by: Skyler Herrera M.D. on 11/11/2016 at 14:01 PROCEDURE: X-RAY CHEST ONE VIEW, PORTABLE ([id number]) IMPRESSION: 1. Cardiomegaly and mild to moderate vascular congestion. 2. Increased attenuation at the left lung base may represent scarring or atelectasis. However, pneumonia or pulmonary contusion may also have this appearance. 3. Probable trace left-sided pleural effusion. Dictated by: Seferino Fierro M.D. on 11/11/2016 at 13:07 PROCEDURE: CT FACE WITHOUT CONTRAST ([id number]) FINDINGS: Image quality: Motion artifacts in mandible. Bones and teeth: There is is a chronic focus in the right superior orbital rim , probably a bone island. Orbital smith are intact. Sinus smith show no fracture or deformity. Nasal bones and septum are intact. Visualized portions of the mandible demonstrate no fractures or subluxation. Zygomatic arches are intact. Pterygoid plates are intact. Visualized portions of the skull base and auditory canals are intact. Sinuses: Paranasal sinuses are aerated, without fluid levels, mucosal thickening, or mucoceles. Mastoid air cells are aerated. Soft tissues: No edema, masses, or fluid collections. No enlarged lymph nodes. No soft tissue lacerations or debris. Vascular: Visualized vascular structures appear normal in the absence of contrast. Bony vascular foramina and canals are intact. IMPRESSION: No facial bone fractures identified on CT. Suboptimal examination due to motion artifacts. Dictated by: Skyler Herrera M.D. on 11/11/2016 at 14:44 Additional Diagnostics: Endoscopy on 10/03/2012 IMPRESSION: 1. Large deep esophageal ulcers extending from mid esophagus to the gastroesophageal junction and into the cardia. Not actively bleeding. 2. Mild chronic active gastritis. 3. Duodenitis. 4. Large hiatal hernia. RECOMMENDATION: Most likely etiology for his gastrointestinal bleeding and anemia appears to be blood loss from of esophageal ulcers. They seem to be healing well without any evidence of active bleeding at this time. Will continue the patient on Protonix drip. He may, however, resume a clear liquid diet without any red. Will not advance his diet perhaps until tomorrow or day after tomorrow. Continue to monitor his hemoglobin and hematocrit closely. He is to remain off of Coumadin at this time due to risk of recurrent bleeding. It is reasonable to transfuse with two more units of packed red blood cells to bring his hemoglobin above 9 or close to 10. I will follow along with you. Poncho Valle MD 09/10/12 8434 <Electronically signed by Poncho Valle MD>10/03/12 7363 Assessment & Plan Patient is an 86 yr old male with past medical history significant for COPD, CHF , hypertension, Chronic Kidney Disease, GERD, Upper GI bleed from esophageal ulcers, Chronic Atrial Fibrillation on ASA and not on anticoagulation who presents to the ED from his primary care doctor [facility] [place] complaining of multiple episodes of ground-level falls.the ED, patient was afebrile and hypotensive. Labs were significant for Hgb 7.0, Hct 22.7, BUN 87, Cr. 2.40. Troponin 0.097. EKG showed A fib with HR 68, prolonged QT. CT of the face was unremarkable for facial fractures, CT of the head showed no acute intracranial abnormalities, CXR showed cardiomegaly with mild to moderate vascular congestion. Patient was admitted for further evaluation of ground level falls and anemia as well as various other lab abnormalities. Symptomatic acute anemia with current history of alcoholism and past history of Esophageal / Variceal bleeding ulcer from EGD in 2012 - Protonix 40 mg po bid - Patient initially declined any further procedures this morning, however changed his mind early afternoon. - Continue CIWA medications. - NPO. - Upper endoscopy for today.. Ground Level Falls, present on admission, under investigation Gastroesophageal Reflux Disease Acute on Chronic Kidney Disease, present on admission, ongoing Chronic Congestive Heart Failure of unknown type, present on admission, ongoing Elevated alkaline phosphatase, present on admission, under investigation Elevated Troponin, present on admission, under investigation Chronic Atrial Fibrillation, present on admission, ongoing Chronic Obstructive Pulmonary Disease, present on admission, chronic Hypertension, chronic Pain Evaluation: Adequate Pain Control GI Prophylaxis: Proton Pump Inhibitor VTE Mechanical Devices: Intermittant Pneumatic CD Resuscitation Status: DNR/DNI:Do Not Resuscitate/Intubate Attending Statement Pt sen and examined Patient without overt bleeding. BUN and serum creatinine are elevated Discussed with patient and his sister that we will plan for EGD tomorrow. Sister and patient agreeable keep patient on clear liquids until tomorrrow 6am FRANCES SALINAS DO Nov 12, 2016 13:14 Rogerio Brock MD Nov 12, 2016 22:45 and anemia as well as various other lab abnormalities. Symptomatic acute anemia with current history of alcoholism and past history of Esophageal / Variceal bleeding ulcer from EGD in 2012 - Protonix 40 mg po bid - Patient initially declined any further procedures this morning, however changed his mind early afternoon. - Continue CIWA medications. - NPO. - Upper endoscopy for today.. Ground Level Falls, present on admission, under investigation Gastroesophageal Reflux Disease Acute on Chronic Kidney Disease, present on admission, ongoing Chronic Congestive Heart Failure of unknown type, present on admission, ongoing Elevated alkaline phosphatase, present on admission, under investigation Elevated Troponin, present on admission, under investigation Chronic Atrial Fibrillation, present on admission, ongoing Chronic Obstructive Pulmonary Disease, present on admission, chronic Hypertension, chronic Pain Evaluation: Adequate Pain Control GI Prophylaxis: Proton Pump Inhibitor VTE Mechanical Devices: Intermittant Pneumatic CD Resuscitation Status: DNR/DNI:Do Not Resuscitate/Intubate FRANCES SALINAS DO Nov 12, 2016 13:14 Elevated alkaline phosphatase, present on admission, under investigation Elevated Troponin, present on admission, under investigation Chronic Atrial Fibrillation, present on admission, ongoing Chronic Obstructive Pulmonary Disease, present on admission, chronic Hypertension, chronic Pain Evaluation: Adequate Pain Control GI Prophylaxis: Proton Pump Inhibitor VTE Mechanical Devices: Intermittant Pneumatic CD Resuscitation Status: DNR/DNI:Do Not Resuscitate/Intubate FRANCES SALINAS DO Nov 12, 2016 13:14
--- NOTE | 2016-11-12 14:56 | PCM.PNMED ---
Subjective Date of Service Nov 12, 2016 Subjective Received 1 PRBC. Hb responded suboptimally. CT abdomen pelvis unrevealing. Continues to have dyspnea. Patient states he has oxygen at home but uses it as needed. Consulted GI for EGD but patient declined endoscopy. 2 more units of PRBCs ordered Exam Vital Signs Vital Sign - Last Date Time Temp Pulse Resp B/P Pulse Ox O2 Delivery O2 Flow Rate FiO2 11/12/16 13:49 36.7 69 22 104/57 11/12/16 09:49 97 Nasal Cannula 2.00 Intake and Output 11/11/16 11/11/16 11/12/16 Cumulative From/Thru 15:00 23:00 07:00 11/11/16 12:26 - 11/12/16 06:06 Intake Total 500 ml 578 ml 1078 ml Output Total 650 ml 890 ml 1540 ml Balance -150 ml -312 ml -462 ml Intake Oral 500 ml 300 ml 800 ml IV Total 20 ml 20 ml Packed Cells 258 ml 258 ml Output Urine Total 650 ml 890 ml 1540 ml # Voids 3 3 Exam General: Patient is lying comfortably on bed, AAOX3, not in acute distress, cooperative . HEENT: head normocephalic, evidence of trauma of face, echymoses around eyes, PERRLA, EOMI, no scleral icterus, noninjected conjunctiva Neck: neck supple, non-tender, no lymphadenopathy, trachea midline, positive JVD CV: irregularly irregular, s1 and s2 heard, grade 2/6 systolic murmur heard best on RUSB, radial pulses equal bilaterally, no rubs or gallops, 2+ pitting edema of lower extremities bilaterally Lungs: coarse breath sounds of lung bases bilaterally, no wheezes, rales or rhonchi, no increased work of breathing Abdomen: protuberant abdomen, normoactive bowel sounds on 4Q, soft, non- distended, non-tender to palpation, appears to have a hernia on the left side of abdomen Skin: warm, multiple bruises of varied age,skin tears, lacerations of UE on bilaterally at different stages of healing Musculoskeletal: UE and LE strength equal bilaterally, full ROM bilaterally Neuro: Grossly neurologically intact, cranial nerves II through XII intact, no dyskinesia, dysmetria, or dysdiadochokinesia noted, sensation intact in extremities Psych: Normal mood and affect IVs and Medications Medications Reviewed: Medications were reviewed in detail Lab and Diagnostics Result Diagram: 11/12/1661911/12/16 06 X-Rays, CTs and MRIs PROCEDURE: CT BRAIN WITHOUT CONTRAST ([id number]) IMPRESSION: 1. No acute intracranial abnormalities. 2. Probable small right frontal subdural hygroma. 3. Moderate to severe cerebral volume loss and mild chronic microvascular ischemic changes. 4. Small left frontal scalp contusion. Dictated by: Skyler Herrera M.D. on 11/11/2016 at 13:54 Approved by: Skyler Herrera M.D. on 11/11/2016 at 14:01 PROCEDURE: X-RAY CHEST ONE VIEW, PORTABLE ([id number]) IMPRESSION: 1. Cardiomegaly and mild to moderate vascular congestion. 2. Increased attenuation at the left lung base may represent scarring or atelectasis. However, pneumonia or pulmonary contusion may also have this appearance. 3. Probable trace left-sided pleural effusion. Dictated by: Seferino Fierro M.D. on 11/11/2016 at 13:07 PROCEDURE: CT FACE WITHOUT CONTRAST ([id number]) FINDINGS: Image quality: Motion artifacts in mandible. Bones and teeth: There is is a chronic focus in the right superior orbital rim , probably a bone island. Orbital smith are intact. Sinus smith show no fracture or deformity. Nasal bones and septum are intact. Visualized portions of the mandible demonstrate no fractures or subluxation. Zygomatic arches are intact. Pterygoid plates are intact. Visualized portions of the skull base and auditory canals are intact. Sinuses: Paranasal sinuses are aerated, without fluid levels, mucosal thickening, or mucoceles. Mastoid air cells are aerated. Soft tissues: No edema, masses, or fluid collections. No enlarged lymph nodes. No soft tissue lacerations or debris. Vascular: Visualized vascular structures appear normal in the absence of contrast. Bony vascular foramina and canals are intact. IMPRESSION: No facial bone fractures identified on CT. Suboptimal examination due to motion artifacts. Dictated by: Skyler Herrera M.D. on 11/11/2016 at 14:44 PROCEDURE: CT ABDOMEN AND PELVIS WITHOUT CONTRAST ([id number]) INDICATIONS: anemia IMPRESSION: 1. Minimal pleural effusions. 2. Prostate hypertrophy. Recommend correlation with PSA levels. 3. Diverticulosis. 4. Nonobstructing left renal calculi. Dictated by: Claudia Conner M.D. on 11/11/2016 at 21:35 Additional Diagnostics Endoscopy on 10/03/2012 IMPRESSION: 1. Large deep esophageal ulcers extending from mid esophagus to the gastroesophageal junction and into the cardia. Not actively bleeding. 2. Mild chronic active gastritis. 3. Duodenitis. 4. Large hiatal hernia. RECOMMENDATION: Most likely etiology for his gastrointestinal bleeding and anemia appears to be blood loss from of esophageal ulcers. They seem to be healing well without any evidence of active bleeding at this time. Will continue the patient on Protonix drip. He may, however, resume a clear liquid diet without any red. Will not advance his diet perhaps until tomorrow or day after tomorrow. Continue to monitor his hemoglobin and hematocrit closely. He is to remain off of Coumadin at this time due to risk of recurrent bleeding. It is reasonable to transfuse with two more units of packed red blood cells to bring his hemoglobin above 9 or close to 10. I will follow along with you. Poncho Valle MD 09/10/12 1642 <Electronically signed by Poncho Valle MD>10/03/12 3971 Assessment & Plan Patient is an 86 yr old male with past medical history significant for COPD, CHF , hypertension, Chronic Kidney Disease, GERD, Upper GI bleed from esophageal ulcers, Chronic Atrial Fibrillation on ASA and not on anticoagulation who presents to the ED from his primary care doctor [facility] complaining of multiple episodes of ground-level falls.the ED, patient was afebrile and hypotensive. Labs were significant for Hgb 7.0, Hct 22.7, BUN 87, Cr. 2.40. Troponin 0.097. EKG showed A fib with HR 68, prolonged QT. CT of the face was unremarkable for facial fractures, CT of the head showed no acute intracranial abnormalities, CXR showed cardiomegaly with mild to moderate vascular congestion. Patient was admitted for further evaluation of ground level falls and anemia as well as various other lab abnormalities. # Normocytic anemia, present on admission, under evaluation. -Hgb/ Hct on admit was 7.0/ 22.7. MCV81.7.recieved 1 PRBC but Hb responded suboptimally to 6.7,CT abd/pelvis unrevealing -Patient denies any signs of active bleeding. 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 Will repeat -Type, Cross and Transfuse if <7. - received 1 unit of PRBCs . will transfuse 2 more units of PRBCs -Iron panel showed low Iron at 24, normal TIBC and 7% saturation. Patient takes Iron supplements at home. Continue -Give Protonix 40 mg po bid given hx of esophageal ulcers -consulted GI, initially planned for endoscopy but patient declined. Sister at bedside states she has convinced patient for endoscopy.will reconsult GI #Suspected GI bleed,acute -mx as above #Ground Level Falls, present on admission, under investigation -Patient denies syncopal episode -alcohol was negative on admit #Acute on Chronic Congestive Heart Failure of unknown type, present on admission , ongoing -Patient takes furosemide 80 mg po at home -Records show that he may also be taking spironolactone, and lisinopril but this has yet to be confirmed -Patient is edematous, positive JVD, crackles on lung exam bilaterally, and CXR shows cardiomegaly with mild to moderate vascular congestion and left-sided pleural effusion -Ordered ECHO -Strict Is and Os, daily weights -Fluid restriction of 1.5 L. Gave Lasix 80 mg IV was 11/12 given multiple transfusions #Acute on Chronic Kidney Disease, present on admission, ongoing -BUN/Cr on admission was 87/ 2.4 -Records show that on 09/06/16, patient's BUN/Cr was 103/ 2.42 -Given patient is fluid overloaded, IV Lasix 40 mg given #Elevated alkaline phosphatase, present on admission, under investigation -AST normal at 37, ALT 21, Alk Phos 211 -concern for metastatic cancer. will need to investigate further -although ALT and AST are normal, does not rule out possibility of cirrhosis given hx of alcohol use -CT #Elevated Troponin/suspected demand ischemia, present on admission, under investigation -Patient denies chest pain. -EKG shows A fib with HR of 68, no ST changes -Troponin on admit 0.097 -Continue to trend troponin q6hrs -Monitor in Telemetry -Possible etiologies include chronic kidney disease vs ischemia #Chronic Atrial Fibrillation, present on admission, ongoing -EKG shows A Fib with HR of 68 -Patient denies being on anticoagulation. 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 a histology specialist in years -Records indicate that patient was on Coumadin in the past #Chronic Obstructive Pulmonary Disease, present on admission, chronic -Patient is on symbicort and albuterol -Continue home medications -O2 as needed with goals of O2 sat between 88-92 % #Gastroesophageal Reflux Disease -Protonix 40 mg po bid #Hypertension, chronic -Patient is currently hypotensive -Hold anti-hypertensive medications Patient Status: Patient is admitted under inpatient status expected length of stay greater than 2 midnights due to severity of presenting symptoms, risk of adverse events, and complexity of treatment plan. Code Status: Patient is DNR/DNI Discharge in 2-3 days. GI Prophylaxis: Proton Pump Inhibitor VTE Mechanical Devices: Intermittant Pneumatic CD Resuscitation Status: DNR/DNI:Do Not Resuscitate/Intubate Kameron Vaughn MD Nov 12, 2016 14:56
--- NOTE | 2016-11-12 15:29 | DRSVH ---
[facility] [address] [place] [address] Echocardiogram Report Name: KEVIN OLIVO Study Date: 11/12/2016 Height: 74 in Hospital Exam Location: [facility] Weight: 195 lb Gender: Male BSA: 2.1 m2 : 1930 Age: 86 yrs BP: 99/57 mmHg Reason For Study: Congestive Heart Failure Ordering Physician: Performed By: Vita Dowd Interpretation Summary A limited echo study. Moderately dilated left ventricle with ejection fraction 50-55%. There is mild global hypokinesis of the left ventricle. Moderately dilated right ventricle with mildly reduced systolic function. Severe biatrial enlargement. The aortic valve is moderately calcified. Aortic stenosis is presented. Severe mitral regurgitation. Moderate to severe tricuspid regurgitation. The right ventricular systolic pressure is estimated at 72 mmHg assuming a right atrial pressure of 15 mm Hg. Severe pulmonary hypertension. Procedure: A two-dimensional transthoracic echocardiogram with color flow and Doppler was performed in limited views only. The study quality was technically adequate. Images from the parasternal window were difficult to obtain and are suboptimal in quality. Comparison is made with the echocardiogram of 06/05/2013. The heart rate ranged between 57-78 bpm during the study. Left Ventricle: The left ventricle is moderately dilated. There is normal left ventricular wall thickness. The ejection fraction is estimated to be 50- 55%. There is mild global hypokinesis of the left ventricle. Diastolic function could not be accurately assessed due to confounding valvular disease. Right Ventricle: The right ventricle is moderately dilated. Right ventricular systolic function is mildly reduced. Atria: There is severe biatrial enlargement. Mitral Valve: There is severe mitral regurgitation. Aortic Valve: The aortic valve is not well visualized. The aortic valve is moderately calcified. Tricuspid Valve: There is moderate to severe tricuspid regurgitation. The right ventricular systolic pressure is estimated at 72 mmHg assuming a right atrial pressure of 15 mm Hg. There is severe pulmonary hypertension. Great Vessels: The IVC is dilated (diameter is greater than 2.1 cm) and it collapses less than 50% with a sniff. This suggests a high right atrial pressure of 15 mm Hg. Pericardium/ Pleura There is no pericardial effusion. There is no pleural effusion. MMode/2D Measurements & Calculations LVIDd: 6.4 cm IVC diam: 2.8 cm LVIDs: 5.3 cm FS: 17.7 % IVSd: 0.87 cm LVPWd: 0.93 cm LV [place]. diameter/BSA (cm/m^2): 3.0 LV sys. diameter/BSA (cm/m^2): 2.5 RVD1 (basal): 5.0 cm TAPSE: 1.8 cm Doppler Measurements & Calculations TR max trinity: 368.5 cm/sec TR max P.8 mmHg Electronically signed by: Luc Ball on Reading Physician:11/12/2016 03:29 PM
--- NOTE | 2016-11-12 22:24 | NUR ---
Endoscopy: Patient went down for his endoscopy at 1000. His daughter and sister were informed of the procedure. Patient has been NPO since breakfast. Patient was brought down in his bed. His vital signs are stable with his current B/P 112 / 74 .
[2016-11-13] VITALS (9 sets, daily range): BP systolic 109–163; BP diastolic 52–71; PULSE 66–91; RESP 18–20; O2SAT 97–100
--- NOTE | 2016-11-13 05:15 | NUR ---
NOC REceived pt at 2300. Assessment not changed much. Dyspnea still noted with activity, but has improved since last noc. PT continues to void frequently and has PVR in 400's. PT able to void some out after encouraging and down to about 200 PVR. H/H remains low despite 3U PRBC's. B/P stable. PT continues to c/o generalized pain, but declines any prn meds at this time. ! person assist with walker to stand at bedside.
[2016-11-13 06:24] LABS: BASOPHILS % (AUTO) 0.2 % (0-3); EOSINOPHILS % (AUTO) 4.6 % (0-5); MONOCYTES % (AUTO) 8.8 % (4-12); Mean Corpuscular Hemoglobin 27.6 pg (27.0-35.0); Mean Corpuscular Volume 83.1 fL (81-100); NEUTROPHILS % (AUTO) 71.9 % (40-74); Platelet Count 287 bil/L (150-400)
[2016-11-13] MEDS: Fluticasone-Salmeterol 100-50 Inhaler INHALATION SCH (10:30)
[2016-11-13] MEDS ORDERED: Lactated Ringer's 1,000 ML IV ONE (11:23)
[2016-11-13] MEDS: Pantoprazole 40 mg ER24 Tablet PO SCH ×2 (13:10→17:21)
--- NOTE | 2016-11-13 14:14 | PCM.PNMED ---
Subjective Date of Service Nov 13, 2016 Subjective Breathing slightly better after IV Lasix given yesterday. Endoscopy postponed to today. Hemoglobin stable.ELANA improved. Exam Vital Signs Vital Sign - Last Date Time Temp Pulse Resp B/P Pulse Ox O2 Delivery O2 Flow Rate FiO2 11/13/16 12:16 77 109/55 97 Simple Mask 2 11/13/16 11:19 20 11/13/16 05:54 36.2 Intake and Output 11/12/16 11/12/16 11/13/16 Cumulative From/Thru 15:00 23:00 07:00 11/11/16 12:26 - 11/13/16 06:38 Intake Total 450 ml 951 ml 250 ml 2729 ml Output Total 1125 ml 850 ml 3515 ml Balance 450 ml -174 ml -600 ml -786 ml Intake Oral 526 ml 250 ml 1576 ml IV Total 150 ml 125 ml 295 ml Packed Cells 300 ml 300 ml 858 ml Output Urine Total 1125 ml 850 ml 3515 ml # Voids 3 Exam General: Patient is lying comfortably on bed, AAOX3, not in acute distress, cooperative . HEENT: head normocephalic, evidence of trauma of face, echymoses around eyes, PERRLA, EOMI, no scleral icterus, noninjected conjunctiva Neck: neck supple, non-tender, no lymphadenopathy, trachea midline, positive JVD CV: irregularly irregular, s1 and s2 heard, grade 2/6 systolic murmur heard best on RUSB, radial pulses equal bilaterally, no rubs or gallops, 2+ pitting edema of lower extremities bilaterally Lungs: coarse breath sounds of lung bases bilaterally, no wheezes, rales or rhonchi, no increased work of breathing Abdomen: protuberant abdomen, normoactive bowel sounds on 4Q, soft, non- distended, non-tender to palpation, appears to have a hernia on the left side of abdomen Skin: warm, multiple bruises of varied age,skin tears, lacerations of UE on bilaterally at different stages of healing Musculoskeletal: UE and LE strength equal bilaterally, full ROM bilaterally Neuro: Grossly neurologically intact, cranial nerves II through XII intact, no dyskinesia, dysmetria, or dysdiadochokinesia noted, sensation intact in extremities Psych: Normal mood and affect IVs and Medications Medications Reviewed: Medications were reviewed in detail Lab and Diagnostics Result Diagram: 11/13/16 0611 11/13/16 0611 X-Rays, CTs and MRIs PROCEDURE: CT BRAIN WITHOUT CONTRAST ([id number]) IMPRESSION: 1. No acute intracranial abnormalities. 2. Probable small right frontal subdural hygroma. 3. Moderate to severe cerebral volume loss and mild chronic microvascular ischemic changes. 4. Small left frontal scalp contusion. Dictated by: Skyler Herrera M.D. on 11/11/2016 at 13:54 Approved by: Skyler Herrera M.D. on 11/11/2016 at 14:01 PROCEDURE: X-RAY CHEST ONE VIEW, PORTABLE ([id number]) IMPRESSION: 1. Cardiomegaly and mild to moderate vascular congestion. 2. Increased attenuation at the left lung base may represent scarring or atelectasis. However, pneumonia or pulmonary contusion may also have this appearance. 3. Probable trace left-sided pleural effusion. Dictated by: Seferino Fierro M.D. on 11/11/2016 at 13:07 PROCEDURE: CT FACE WITHOUT CONTRAST ([id number]) FINDINGS: Image quality: Motion artifacts in mandible. Bones and teeth: There is is a chronic focus in the right superior orbital rim , probably a bone island. Orbital smith are intact. Sinus smith show no fracture or deformity. Nasal bones and septum are intact. Visualized portions of the mandible demonstrate no fractures or subluxation. Zygomatic arches are intact. Pterygoid plates are intact. Visualized portions of the skull base and auditory canals are intact. Sinuses: Paranasal sinuses are aerated, without fluid levels, mucosal thickening, or mucoceles. Mastoid air cells are aerated. Soft tissues: No edema, masses, or fluid collections. No enlarged lymph nodes. No soft tissue lacerations or debris. Vascular: Visualized vascular structures appear normal in the absence of contrast. Bony vascular foramina and canals are intact. IMPRESSION: No facial bone fractures identified on CT. Suboptimal examination due to motion artifacts. Dictated by: Skyler Herrera M.D. on 11/11/2016 at 14:44 PROCEDURE: CT ABDOMEN AND PELVIS WITHOUT CONTRAST ([id number]) INDICATIONS: anemia IMPRESSION: 1. Minimal pleural effusions. 2. Prostate hypertrophy. Recommend correlation with PSA levels. 3. Diverticulosis. 4. Nonobstructing left renal calculi. Dictated by: Claudia Conner M.D. on 11/11/2016 at 21:35 Cardiac Echo Impressions ECHO 11/12 Interpretation Summary A limited echo study. Moderately dilated left ventricle with ejection fraction 50-55%. There is mild global hypokinesis of the left ventricle. Moderately dilated right ventricle with mildly reduced systolic function. Severe biatrial enlargement. The aortic valve is moderately calcified. Aortic stenosis is presented. Severe mitral regurgitation. Moderate to severe tricuspid regurgitation. The right ventricular systolic pressure is estimated at 72 mmHg assuming a right atrial pressure of 15 mm Hg. Severe pulmonary hypertension. Additional Diagnostics Endoscopy on 10/03/2012 IMPRESSION: 1. Large deep esophageal ulcers extending from mid esophagus to the gastroesophageal junction and into the cardia. Not actively bleeding. 2. Mild chronic active gastritis. 3. Duodenitis. 4. Large hiatal hernia. RECOMMENDATION: Most likely etiology for his gastrointestinal bleeding and anemia appears to be blood loss from of esophageal ulcers. They seem to be healing well without any evidence of active bleeding at this time. Will continue the patient on Protonix drip. He may, however, resume a clear liquid diet without any red. Will not advance his diet perhaps until tomorrow or day after tomorrow. Continue to monitor his hemoglobin and hematocrit closely. He is to remain off of Coumadin at this time due to risk of recurrent bleeding. It is reasonable to transfuse with two more units of packed red blood cells to bring his hemoglobin above 9 or close to 10. I will follow along with you. Poncho Valle MD 09/10/12 1642 <Electronically signed by Poncho Valle MD>10/03/12 0023 Assessment & Plan Patient is an 86 yr old male with past medical history significant for COPD, CHF , hypertension, Chronic Kidney Disease, GERD, Upper GI bleed from esophageal ulcers, Chronic Atrial Fibrillation on ASA and not on anticoagulation who presents to the ED from his primary care doctor at the [place] complaining of multiple episodes of ground-level falls.the ED, patient was afebrile and hypotensive. Labs were significant for Hgb 7.0, Hct 22.7, BUN 87, Cr. 2.40. Troponin 0.097. EKG showed A fib with HR 68, prolonged QT. CT of the face was unremarkable for facial fractures, CT of the head showed no acute intracranial abnormalities, CXR showed cardiomegaly with mild to moderate vascular congestion. Patient was admitted for further evaluation of ground level falls and anemia as well as various other lab abnormalities. #anemia requiring transfusion, present on admission, under evaluation. -Hgb/ Hct on admit was 7.0/ 22.7. MCV81.7.recieved 1 PRBC but Hb responded suboptimally to 6.7,CT abd/pelvis unrevealing -Patient denies any signs of active bleeding. -BUN/Cr 87/2.4 ratio: 36.25 , could be consistent with possible GI bleed -ddx acute GI blood loss given hx of esophageal ulcers,chronic kidney disease, , pernicious anemia given hx of alcohol use -Stool guiac in the ED was reportedly negative. Will repeat -Type, Cross and Transfuse if <7. - received 1 unit of PRBCs 11/11. transfused 2 more units of PRBCs 11/12,Hb stable at 10.3 -Iron panel showed low Iron at 24, normal TIBC and 7% saturation. Patient takes Iron supplements at home. Continue -Give Protonix 40 mg po bid -consulted GI, endoscopy later today #Suspected GI bleed,acute -mx as above #Ground Level Falls, present on admission, under investigation -Due to anemia -alcohol was negative on admit #Acute on Chronic systolic Congestive Heart Failure , present on admission, ongoing -Patient takes furosemide 80 mg po bid at home,resume today -Records show that he may also be taking spironolactone, and lisinopril but this has yet to be confirmed -Patient is edematous, positive JVD, crackles on lung exam bilaterally, and CXR shows cardiomegaly with mild to moderate vascular congestion and left-sided pleural effusion - ECHO EF 50-55%, mild global hypokinesis, severe pulmonary hypertension, severe MR, -Strict Is and Os, daily weights -Fluid restriction of 1.5 L. Gave Lasix 80 mg IV was 11/12 given multiple transfusions #Acute on Chronic Kidney Disease, present on admission, ongoing -due to blood loss mainly, cardiorenal unlikely -BUN/Cr on admission was 87/ 2.4,improved to 1.6 -Records show that on 09/06/16, patient's BUN/Cr was 103/ 2.42 -Given patient is fluid overloaded, IV Lasix 40 mg given #Elevated Troponin/suspected demand ischemia, present on admission, -Patient denies chest pain. -EKG shows A fib with HR of 68, no ST changes -Troponin on admit 0.097 -echo as above -Possible etiologies include chronic kidney disease vs ischemia #Chronic Atrial Fibrillation, present on admission, ongoing -EKG shows A Fib with HR of 68 -Patient denies being on anticoagulation. 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 years -Records indicate that patient was on Coumadin in the past #Chronic Obstructive Pulmonary Disease, present on admission, chronic -Patient is on symbicort and albuterol -Continue home medications -O2 as needed with goals of O2 sat between 88-92 % #Severe pulmonary hypertension due to COPD #Gastroesophageal Reflux Disease -Protonix 40 mg po bid #Hypertension, chronic -Patient is currently hypotensive -Hold anti-hypertensive medications Patient Status: Patient is admitted under inpatient status expected length of stay greater than 2 midnights due to severity of presenting symptoms, risk of adverse events, and complexity of treatment plan. Code Status: Patient is DNR/DNI Discharge in 2-3 days. GI Prophylaxis: Proton Pump Inhibitor VTE Mechanical Devices: Intermittant Pneumatic CD Resuscitation Status: DNR/DNI:Do Not Resuscitate/Intubate Kameron Vaughn MD Nov 13, 2016 14:14
[2016-11-13] MEDS ORDERED: Propofol 10,000 mCg/mL 20 mL Inj ONE (14:24)
--- NOTE | 2016-11-13 14:46 | ENDO ---
[address] [address] ENDOSCOPY PROCEDURE PATIENT: KEVIN OLIVO : 1930 MR#: [id number] ADMIT: 11/11/2016 JOB ID: [id number] PROCEDURE: Esophagogastroduodenoscopy. INDICATION: Gastrointestinal bleeding. Please see Dr. Alin Cervantes's anesthesia report for details regarding ASA classification, Mallampati score, and medications. PROCEDURE DETAILS: After informed consent was obtained, the patient was brought into the GI suite, where he was placed on oxygen via face mask, and then placed in the left lateral decubitus position. Medications were administered for sedation. The standard EGD scope was inserted through the bite block and advanced under direct visualization to the second portion of the duodenum without difficulty. FINDINGS: 1. In the mid gastric body on the greater curvature, there was an approximately 4-5 mm AVM that was not actively bleeding. AVM was treated with a forward firing APC probe on the gastric settings. The remainder of the gastric exam was otherwise unremarkable. In the duodenum, bile-stained mucosa was noted throughout. 2. The pylorus, antrum appeared unremarkable. Other then the AVM, the gastric body appeared unremarkable. 3. Retroflexed views in the gastric body revealed a normal-appearing cardia and fundus. 4. The GE junction was regular. Patient did have a small hiatal hernia. 5. Normal-appearing esophagus. 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 Treated with argon plasma coagulation RECOMMENDATIONS: 1. PPI daily. 2. Continue to follow H and H closely. 3. A clear liquid diet today and advance as tolerated. COMPLICATIONS: None. ESTIMATED BLOOD LOSS: Zero.
--- NOTE | 2016-11-13 15:27 | NUR ---
Med rec: seaman officer reported that MD requested med rec be reviewed. Admit nurse discussed meds with pt, pt agrees with med rec as charted in computer. seaman officer notified.
[2016-11-13] MEDS ORDERED: SPIR25TA3 PO (15:58)
[2016-11-13] MEDS ORDERED: LISI-571 PO (15:58)
--- NOTE | 2016-11-13 19:22 | PCM.HPANE ---
Patient Data Surgeon Admitting Provider:Arcadio Rico DO Attending Provider:Kameron Vaughn MD [facility] Other Provider: Reason for Visit Severe Anemia, Acute Kidney Injury SEVERE ANEMIA, ACUTE KIDNEY INJURY Ht/WT & BMI Height (Feet): 6 Height (Inches): 2.00 Weight (Kilograms): 88.300 Body Mass Index 24.00 Allergies Coded Allergies: oxycodone (Verified Allergy, Unknown, 11/11/16) prednisone (Verified Allergy, Unknown, 11/11/16) Past Anesthesia History Anesthesia History: Positive for:: Anesthesia Reactions (hard to wake up), Denies:: Abnormal Airway, Difficult Intubation, Fam Anesthesia Reaction, Fam Malignant Hypertherm, Malignant Hyperthermia Diabetes History Hx Diabetes?: No MRSA MRSA: No Medications Blood Thinner: Coumadin Reported Medications Spironolactone 25 Mg Nhlrtl95 Mg PO DAILY #30 TABLET Ref 0 11/13/16 Lisinopril 5 Mg Tablet5 Mg PO DAILY #30 TABLET Ref 0 11/13/16 Aspirin 325 Mg Ndyhnr982 Mg PO DAILY #1 BOTTLE 11/12/16 Folic Acid 1 Mg Tablet1 Mg PO DAILY 30 Days 11/12/16 Ferrous Sulfate 325 Mg Tablet.dr325 Mg PO DAILY 30 Days Ref 0 11/12/16 Cholecalciferol (Vitamin D3) (Vitamin D3)1,000 Unit Tab.chew1,000 Unit PO DAILY 11/12/16 Ascorbic Acid (Vitamin C)500 Mg Capsule.er500 Mg PO DAILY 11/12/16 Tiotropium [place] (Spiriva)18 Mcg Cap.w.dev18 Mcg IH DAILY #1 PKG Ref 0 11/12/16 Omeprazole 20 Mg Capsule.dr20 Mg PO DAILY Ref 0 11/12/16 Multivitamin (Once Daily)1 Each Tablet1 Each PO DAILY 11/12/16 Latanoprost (Xalatan)2.5 Ml Drops1 Drop AFFECT_EYE HS 11/12/16 Furosemide 80 Mg Tab80 Mg PO BID 30 Days Ref 0 11/12/16 Budesonide/Formoterol 160-4.5 mcg Inh (Symbicort 160-4.5 mcg Inh)120 Puff Inhaler1 Puff INHALATION BID #1 INHALER Ref 0 11/12/16 Albuterol Neb Soln 0.63 Mg/3 Ml Vial.neb0.63 Mg INHALATION QID Ref 0 11/12/16 Albuterol HFA (Proair HFA)8.5 Gm Hfa.aer.ad2 Puffs INHALATION QID PRN For Shortness of Breath #1 INHALER 11/12/16 Discontinued Reported Medications Albuterol-Expunged Drug, Do Not Renew! 90 Mcg Puff2 Puffs INH Q4 09/11/12 [second inhaler] No Conflict Check2 Puffs INH BID 09/11/12 Ylleo-Byggey-Uwgrhsuy Drug, Do Not Renew! (Symbicort 160/4.5mcg-Expunged Drug, Do Not R)1 Puff Inha1 Puff INH DAILY PRIME WITH 1 PUMP PRIOR TO INITIAL USE. *SHAKE WELL*RINSE MOUTH AFTER EACH USE* 09/11/12 [Second HTN Med] No Conflict Check1 Tab ORAL DAILY 09/11/12 Furosemide-Expunged Drug, Do Not Renew! 80 Mg Vudfno15 Mg PO BID Take one tablet daily 09/09/12 [Lisinopril] No Conflict Check 09/09/12 Discontinued Scripts Pantoprazole-Expunged Drug, Do Not Renew! (Protonix-Expunged Drug, Do Not Renew! )40 Mg Tablet.dr40 Mg PO BID 30 Days 40 MG Prov:Bry Hong MD 09/11/12 History History of ENT Problems?: Yes HEENT History: Positive for:: Cataracts Glaucoma Hearing Problem Denies:: Abnormal Airway Difficult Intubation Dysphagia Sinus Problem Denture Type: Full- Upper Full- Lower Teeth Condition: Missing Teeth Hx of Heart Problems?: Yes Cardiovascular History: Positive for:: Atrial Fibrillation Edema Hypertension Irregular Heartbeat Denies:: AICD Cardiac Surgery Chest Pain Congestive Heart Failure Heart Murmur Pacemaker Thrombophlebitis Valvular Heart Disease Hx of Respiratory Problem?: Yes Respiratory History: Positive for:: COPD Chest Surgery (Thoracotomy) Dyspnea Pneumonia Denies:: Asthma Emphysema Hemoptysis Tuberculosis Hx Neurologic Problems?: Yes Neurological History: Positive for:: Dizziness Headaches (occasional) Denies:: Alzheimer's Disease CVA Dementia Parkinson's Disease Seizures Hx of GI Problems?: Yes Hx of Problems?: No Genitourinary History: Denies:: HX of Hemodialysis Kidney Stones Urinary Tract Infection HX of Peritoneal Dialysis: No Male Hx: Denies:: Prostate Problems Scrotal Mass Testicular Surgery Hx Musculoskeletal Problems?: Yes Musculoskeletal History: Positive for:: Musculoskeletal Trauma (R shoulder) Denies:: Back Injury Joint Replacement Hx of Psycho/Social Problems?: No Hx Surgeries?: No Hx Any Other Health Problems?: Yes Other History: Positive for:: Hospitalization (thoracotomy) History Blood Transfusions: Positive for:: Accept Blood Products? Denies:: Blood Transfusions Hx Diabetes: No Hx Alcohol Use: Yes (2-3 martinis daily)Alcoholic Drinks Per Day: 2Hx Substance Use: No Smoking Status: Former Smoker Unknown if Ever Smoker Have You Smoked inLast 12 mo: No Stop/Bang Treated for Sleep Apnea?: No Do You Have a CPAP Machine?: No S-Snoring: Do You Snore Loudly: Yes T-Tired: feel tired, fatigued: No O-Obsered: Observed not breath: No P-Blood Pressure: treated: Yes B- Body Mass Index > 35 kg/m2: No A- Age over 50: Yes N- Neck Large Circumference: No G- Gender Male: Yes CHARITO Total Score: 3 Risk Assessment Category Category 1A: Patient has history of documented sleep apnea, and HAS NOT received any narcotic, sedative or anesthesia administration during this stay. Category 1B: Patient has history of documented sleep apnea, and HAS received any narcotic , sedative or anesthesia administration during this stay Category 2: Patient has SUSPECTED Obstructive Sleep Apnea, and HAS received any narcotic , sedative or anesthesia administration during this stay. Category 3: Patient has SUSPECTED Obstructive Sleep Apnea and HAS NOT received narcotic, sedative or anesthesia administration during this stay. Category 4: Outpatient in Procedural Areas with known sleep apnea or who screen positive for High Risk via the STOP/BANG questionnaire. Exam Exam Vital Signs Vital Signs Date Time Temp Pulse Resp B/P Pulse Ox O2 Delivery O2 Flow Rate FiO2 11/13/16 11:19 66 20 129/66 99 OxyMask 2 11/13/16 05:54 36.2 84 18 118/60 97 Nasal Cannula 2.00 11/13/16 05:13 66 11/13/16 04:27 66 General Appearance: Alert, Oriented X3, Cooperative, No Acute Distress HEENT/AIRWAY: MP 2 Lungs: Diminished, Coarse Heart: Exam Unremarkable, Regular Rate/Rhythm, No Murmurs/Rubs/Gallops Meds/Labs/Diagnostics Labs Test 11/11/16 13:05 11/11/16 14:06 11/11/16 20:08 11/12/16 02:38 Reticulocyte Count,Calculated 2.2% (0.6-2.6) Prothrombin Time 11.1sec (8.1-12.5) Prothromb Time International Ratio 1.04ratio Iron Level 24ug/dL (35-150) Total Iron Binding Capacity 330ug/dL (250-450) Percent Iron Saturation 7%sat (15-50) Unsaturated Iron Binding 306.1ug/dL Ferritin 40ng/mL (30-400) Vitamin B12 Level >1999pg/mL (211-946) Folate > 19.9ng/mL (>3.0) Hold [place] Top Tube Received (Received) Alcohols < 10mg/dL (0-10) Urine Color Yellow (YELLOW) Urine Appearance Clear (CLEAR,HAZY) Urine pH 5.5 (5.0-8.0) Urine Specific [place] 1.010 (1.003-1.035) Urine Protein Negativemg/dL (NEG,TRACE) Urine Glucose (UA) Negativemg/dL (NEGATIVE) Urine Ketones Negativemg/dL (NEGATIVE) Urine Occult Blood Negative (NEGATIVE) Urine Nitrite Negative (NEGATIVE) Urine Bilirubin Negative (NEGATIVE) Urine Urobilinogen Normalmg/dL (NORMAL) Urine Leukocyte Esterase Negative (NEGATIVE) Urine RBC 0-2/hpf (0-2) Urine WBC 0-5/hpf (0-5) Urine Epithelial Cells Occasional/hpf (NONE-MOD) Urine Crystals None seen (NONE SEEN) Urine Bacteria Few/hpf (NONE-FEW) Urine Hyaline Casts Occasional/lpf (NONE) Urine Granular Casts Occasional (NONE SEEN) Urine Waxy Casts None seen (NONE SEEN) Urine Red Blood Cell Casts None seen (NONE SEEN) Urine White Blood Cell Casts None seen (NONE SEEN) Urine Mucus Present (None Seen) Urine Trichomonas None seen (NONE SEEN) Urine Yeast None (NONE SEEN) Urinalysis Comment None Urine Culture Reflexed Not indicated Thyroid Stimulating Hormone (TSH) 3.510uIU/mL (0.450-4.500) Troponin T 0.086ug/L (0.0-0.011) Test 11/12/16 06:20 11/13/16 06:11 Lactic Acid Level 0.8mmol/L (0.4-2.0) Phosphorus Level 3.9mg/dL (2.5-4.9) Magnesium Level 1.9mg/dL (1.6-2.6) Procalcitonin 0.25ng/mL (0.00-0.08) White Blood Count 6.6th/mm3 (3.8-10.1) Red Blood Count 3.73mil/mm3 (4.40-5.80) Hemoglobin 10.3g/dL (13.8-17.2) Hematocrit 31.0% (41.0-50.0) Mean Corpuscular Volume 83.1fL (81-100) Mean Corpuscular Hemoglobin 27.6pg (27.0-35.0) Mean Corpuscular Hemoglobin Concent 33.2% (32.0-37.0) Red Cell Distribution Width 20.7% (12.3-15.4) Platelet Count 287bil/L (150-400) Neutrophils (%) (Auto) 71.9% (40-74) Lymphocytes (%) (Auto) 14.0% (14-46) Monocytes (%) (Auto) 8.8% (4-12) Eosinophils (%) (Auto) 4.6% (0-5) Basophils (%) (Auto) 0.2% (0-3) Sodium Level 142mEq/L (134-144) Potassium Level 5.1mEq/L (3.5-5.2) Chloride Level 101mEq/L (97-108) Carbon Dioxide Level 29mmol/L (18-29) Blood Urea Nitrogen 78mg/dL (8-27) Creatinine 1.67mg/dL (0.76-1.27) Estimat Glomerular Filtration Rate 42mL/min (>59) Glucose Level 110mg/dL (60-99) Calcium Level 8.8mg/dL (8.5-10.1) Total Bilirubin 1.5mg/dL (0.0-1.2) Aspartate Amino Transf (AST/SGOT) 32U/L (0-50) Alanine Aminotransferase (ALT/SGPT) 20U/L (0-44) Alkaline Phosphatase 221U/L (25-160) Total Protein 6.1g/dL (6.4-8.4) Albumin 3.3g/dL (3.4-5.0) Plan Impression Patient chart reviewed, patient interviewed and anesthestic plan with risks, benefits, and alternatives discussed, and informed consent obtained. NPO per Anesth. Guidelines: Yes ASA Physical Status: ASA3 Plus Emergency Anesthetic Plan: GA Bene/Risks/Altern/Consents: Yes HP Complete Prior to Induction: Yes Alin Cervantes MD Nov 13, 2016 11:23
--- NOTE | 2016-11-13 19:23 | PCM.ANEP1 ---
Post Anesthesia PACU Phase 1 Assessment Vital Signs Vital Signs Date Time Temp Pulse Resp B/P Pulse Ox O2 Delivery O2 Flow Rate FiO2 11/13/16 12:16 77 109/55 97 Simple Mask 2 11/13/16 12:03 74 163/58 100 Simple Mask 2 Anesthetic Administered: GA, MAC Level of Alertness: Awake, talking LIEBERMAN's with Equal Strength: Yes Pain: Yes Nausea or Vomiting: No CV Function & Hydration Stable: Yes Airway Device: Oxygen Delivery: Room Air Lungs: Clear to Auscultation, Diminished, Coarse Dermatome Level: Full Sensation PACU Phase 2 Assessment Complications: No Follow up Care: N/A Patient Instructions Provided: N/A Alin Cervantes MD Nov 13, 2016 19:23
--- NOTE | 2016-11-13 19:29 | NUR ---
Afib/SOB Cardiac: Pt denies CP. Tele: afib 80s Resp: SPo2 mid 90s on 2L NC GI/: denies n/v Neuro: Pt extremely [place]; no hearing aids in place. Pt is appropriate otherwise.
[2016-11-13] MEDS: Fluticasone-Salmererol 250-50 Inhaler INHALATION SCH (20:07)
[2016-11-14] VITALS (12 sets, daily range): BP systolic 103–138; BP diastolic 62–102; PULSE 67–78; RESP 18–20; O2SAT 92–98
[2016-11-14 06:24] LABS: BASOPHILS % (AUTO) 0.2 % (0-3); EOSINOPHILS % (AUTO) 5.1 % (0-5); MONOCYTES % (AUTO) 12.7 % (4-12); Mean Corpuscular Hemoglobin 26.2 pg (27.0-35.0); Mean Corpuscular Volume 85.8 fL (81-100); NEUTROPHILS % (AUTO) 65.4 % (40-74); Platelet Count 252 bil/L (150-400)
[2016-11-14] MEDS ORDERED: Tiotropium 18mcg/Cap 5 Capsule Inhaler Kit INHALATION SCH (08:30)
[2016-11-14] MEDS ORDERED: Ascorbic Acid 500 mg Tablet PO SCH (08:30)
[2016-11-14] MEDS: Pantoprazole 40 mg ER24 Tablet PO SCH ×2 (09:31→17:11)
[2016-11-14] MEDS: Fluticasone-Salmererol 250-50 Inhaler INHALATION SCH ×2 (09:32→20:06)
--- NOTE | 2016-11-14 12:31 | PCM.PNMED ---
Subjective Date of Service Nov 14, 2016 Subjective patient feeling better overall.s/p EGD,gastric AVM cauterized Exam Vital Signs Vital Sign - Last Date Time Temp Pulse Resp B/P Pulse Ox O2 Delivery O2 Flow Rate FiO2 11/14/16 11:47 70 11/14/16 09:17 36.7 18 104/63 92 Nasal Cannula 2.00 Intake and Output 11/13/16 11/13/16 11/14/16 Cumulative From/Thru 15:00 23:00 07:00 11/11/16 12:26 - 11/14/16 05:05 Intake Total 250 ml 700 ml 720 ml 4399 ml Output Total 750 ml 72 ml 4337 ml Balance 250 ml -50 ml 648 ml 62 ml Intake Oral 700 ml 720 ml 2996 ml IV Total 250 ml 545 ml Packed Cells 858 ml Output Urine Total 750 ml 71 ml 4336 ml Estimated Blood Loss 1 ml 1 ml # Voids 3 # Bowel Movements 0 0 0 Exam General: Patient is lying comfortably on bed, AAOX3, not in acute distress, cooperative . HEENT: head normocephalic, evidence of trauma of face, echymoses around eyes, PERRLA, EOMI, no scleral icterus, noninjected conjunctiva Neck: neck supple, non-tender, no lymphadenopathy, trachea midline, positive JVD CV: irregularly irregular, s1 and s2 heard, grade 2/6 systolic murmur heard best on RUSB, radial pulses equal bilaterally, no rubs or gallops, 2+ pitting edema of lower extremities bilaterally Lungs: coarse breath sounds of lung bases bilaterally, no wheezes, rales or rhonchi, no increased work of breathing Abdomen: protuberant abdomen, normoactive bowel sounds on 4Q, soft, non- distended, non-tender to palpation, appears to have a hernia on the left side of abdomen Skin: warm, multiple bruises of varied age,skin tears, lacerations of UE on bilaterally at different stages of healing Musculoskeletal: UE and LE strength equal bilaterally, full ROM bilaterally Neuro: Grossly neurologically intact, cranial nerves II through XII intact, no dyskinesia, dysmetria, or dysdiadochokinesia noted, sensation intact in extremities Psych: Normal mood and affect IVs and Medications Medications Reviewed: Medications were reviewed in detail Lab and Diagnostics Result Diagram: 11/14/16 0555 11/13/16 0611 X-Rays, CTs and MRIs PROCEDURE: CT BRAIN WITHOUT CONTRAST ([id number]) IMPRESSION: 1. No acute intracranial abnormalities. 2. Probable small right frontal subdural hygroma. 3. Moderate to severe cerebral volume loss and mild chronic microvascular ischemic changes. 4. Small left frontal scalp contusion. Dictated by: Skyler Herrera M.D. on 11/11/2016 at 13:54 Approved by: Skyler Herrera M.D. on 11/11/2016 at 14:01 PROCEDURE: X-RAY CHEST ONE VIEW, PORTABLE ([id number]) IMPRESSION: 1. Cardiomegaly and mild to moderate vascular congestion. 2. Increased attenuation at the left lung base may represent scarring or atelectasis. However, pneumonia or pulmonary contusion may also have this appearance. 3. Probable trace left-sided pleural effusion. Dictated by: Seferino Fierro M.D. on 11/11/2016 at 13:07 PROCEDURE: CT FACE WITHOUT CONTRAST ([id number]) FINDINGS: Image quality: Motion artifacts in mandible. Bones and teeth: There is is a chronic focus in the right superior orbital rim , probably a bone island. Orbital smith are intact. Sinus smith show no fracture or deformity. Nasal bones and septum are intact. Visualized portions of the mandible demonstrate no fractures or subluxation. Zygomatic arches are intact. Pterygoid plates are intact. Visualized portions of the skull base and auditory canals are intact. Sinuses: Paranasal sinuses are aerated, without fluid levels, mucosal thickening, or mucoceles. Mastoid air cells are aerated. Soft tissues: No edema, masses, or fluid collections. No enlarged lymph nodes. No soft tissue lacerations or debris. Vascular: Visualized vascular structures appear normal in the absence of contrast. Bony vascular foramina and canals are intact. IMPRESSION: No facial bone fractures identified on CT. Suboptimal examination due to motion artifacts. Dictated by: Skyler Herrera M.D. on 11/11/2016 at 14:44 PROCEDURE: CT ABDOMEN AND PELVIS WITHOUT CONTRAST ([id number]) INDICATIONS: anemia IMPRESSION: 1. Minimal pleural effusions. 2. Prostate hypertrophy. Recommend correlation with PSA levels. 3. Diverticulosis. 4. Nonobstructing left renal calculi. Dictated by: Claudia Conner M.D. on 11/11/2016 at 21:35 Cardiac Echo Impressions ECHO 11/12 Interpretation Summary A limited echo study. Moderately dilated left ventricle with ejection fraction 50-55%. There is mild global hypokinesis of the left ventricle. Moderately dilated right ventricle with mildly reduced systolic function. Severe biatrial enlargement. The aortic valve is moderately calcified. Aortic stenosis is presented. Severe mitral regurgitation. Moderate to severe tricuspid regurgitation. The right ventricular systolic pressure is estimated at 72 mmHg assuming a right atrial pressure of 15 mm Hg. Severe pulmonary hypertension. Additional Diagnostics Endoscopy on 10/03/2012 IMPRESSION: 1. Large deep esophageal ulcers extending from mid esophagus to the gastroesophageal junction and into the cardia. Not actively bleeding. 2. Mild chronic active gastritis. 3. Duodenitis. 4. Large hiatal hernia. RECOMMENDATION: Most likely etiology for his gastrointestinal bleeding and anemia appears to be blood loss from of esophageal ulcers. They seem to be healing well without any evidence of active bleeding at this time. Will continue the patient on Protonix drip. He may, however, resume a clear liquid diet without any red. Will not advance his diet perhaps until tomorrow or day after tomorrow. Continue to monitor his hemoglobin and hematocrit closely. He is to remain off of Coumadin at this time due to risk of recurrent bleeding. It is reasonable to transfuse with two more units of packed red blood cells to bring his hemoglobin above 9 or close to 10. I will follow along with you. Poncho Valle MD 09/10/12 3602 <Electronically signed by Poncho Valle MD>10/03/12 0203 EGD 11/13/16 PROCEDURE: Esophagogastroduodenoscopy. INDICATION: Gastrointestinal bleeding. Please see Dr. Alin Cervantes's anesthesia report for details regarding ASA classification, Mallampati score, and medications. PROCEDURE DETAILS: After informed consent was obtained, the patient was brought into the GI suite, where he was placed on oxygen via face mask, and then placed in the left lateral decubitus position. Medications were administered for sedation. The standard EGD scope was inserted through the bite block and advanced under direct visualization to the second portion of the duodenum without difficulty. FINDINGS: 1. In the mid gastric body on the greater curvature, there was an approximately 4-5 mm AVM that was not actively bleeding. AVM was treated with a forward firing APC probe on the gastric settings. The remainder of the gastric exam was otherwise unremarkable. In the duodenum, bile-stained mucosa was noted throughout. 2. The pylorus, antrum appeared unremarkable. Other then the AVM, the gastric body appeared unremarkable. 3. Retroflexed views in the gastric body revealed a normal-appearing cardia and fundus. 4. The GE junction was regular. Patient did have a small hiatal hernia. 5. Normal-appearing esophagus. 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 Treated with argon plasma coagulation RECOMMENDATIONS: 1. PPI daily. 2. Continue to follow H and H closely. 3. A clear liquid diet today and advance as tolerated. COMPLICATIONS: None. ESTIMATED BLOOD LOSS: Zero. Rogerio Brock MD 11/13/16 1204 Assessment & Plan Patient is an 86 yr old male with past medical history significant for COPD, CHF , hypertension, Chronic Kidney Disease, GERD, Upper GI bleed from esophageal ulcers, Chronic Atrial Fibrillation on ASA and not on anticoagulation who presents to the ED from his primary care doctor at the [place] complaining of multiple episodes of ground-level falls.the ED, patient was afebrile and hypotensive. Labs were significant for Hgb 7.0, Hct 22.7, BUN 87, Cr. 2.40. Troponin 0.097. EKG showed A fib with HR 68, prolonged QT. CT of the face was unremarkable for facial fractures, CT of the head showed no acute intracranial abnormalities, CXR showed cardiomegaly with mild to moderate vascular congestion. Patient was admitted for further evaluation of ground level falls and anemia as well as various other lab abnormalities. # anemia requiring transfusion, present on admission, under evaluation. -Hgb/ Hct on admit was 7.0/ 22.7. 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 Treated with argon plasma coagulation -Stool guiac in the ED was reportedly negative. -Type, Cross and Transfuse if <7. - received 1 unit of PRBCs 11/11. transfused 2 more units of PRBCs 11/12,Hb stable at 10.3 -Iron panel showed low Iron at 24, normal TIBC and 7% saturation. Patient takes Iron supplements at home. 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 Treated with argon plasma coagulation -patient takes ASA for AFIb,discussed with Dr Barreto,may resume ASA after 1 week -mx as above #Ground Level Falls, present on admission, under investigation -Due to anemia -alcohol was negative on admit #Acute on Chronic systolic Congestive Heart Failure , present on admission, ongoing -Patient takes furosemide 80 mg po bid at home,resume today -Records show that he may also be taking spironolactone, and lisinopril but this has yet to be confirmed -Patient is edematous, positive JVD, crackles on lung exam bilaterally, and CXR shows cardiomegaly with mild to moderate vascular congestion and left-sided pleural effusion - ECHO EF 50-55%, mild global hypokinesis, severe pulmonary hypertension, severe MR, -Strict Is and Os, daily weights -Fluid restriction of 1.5 L. Gave Lasix 80 mg IV was 11/12 given multiple transfusions #Acute on Chronic Kidney Disease, present on admission, ongoing -due to blood loss mainly, cardiorenal unlikely -BUN/Cr on admission was 87/ 2.4,improved to 1.6 -Records show that on 09/06/16, patient's BUN/Cr was 103/ 2.42 #Elevated Troponin/suspected demand ischemia, present on admission, -Patient denies chest pain. -EKG shows A fib with HR of 68, no ST changes -Troponin on admit 0.097 -echo as above -Possible etiologies include chronic kidney disease vs ischemia #Chronic Atrial Fibrillation, present on admission, ongoing -EKG shows A Fib with HR of 68 -Patient denies being on anticoagulation. He takes ASA daily,resume after 1 week -He is not on rate control -He states that he has not seen a associate financial analyst in years -Records indicate that patient was on Coumadin in the past #Chronic Obstructive Pulmonary Disease, present on admission, chronic -Patient is on symbicort and albuterol -Continue home medications -O2 as needed with goals of O2 sat between 88-92 % #Severe pulmonary hypertension due to COPD #Gastroesophageal Reflux Disease -Protonix 40 mg po bid #Hypertension, chronic -Patient is currently hypotensive -Hold anti-hypertensive medications Patient Status: Patient is admitted under inpatient status expected length of stay greater than 2 midnights due to severity of presenting symptoms, risk of adverse events, and complexity of treatment plan. Code Status: Patient is DNR/DNI Discharge in 2-3 days.PT eval ordered GI Prophylaxis: Proton Pump Inhibitor VTE Mechanical Devices: Intermittant Pneumatic CD Resuscitation Status: DNR/DNI:Do Not Resuscitate/Intubate Kameron Vaughn MD Nov 14, 2016 12:31
--- NOTE | 2016-11-14 14:42 | NUR ---
Evaluation completed. Please go to "Notes" then click on "Assessments and Notes" (bottom left corner of screen). Then select appropriate discipline tab on top of screen.
[2016-11-14] MEDS ORDERED: .Epic Conversion Completed XX PRN (15:50)
--- NOTE | 2016-11-14 17:32 | NUR ---
Shift note Pt is very hard of hearing but A&OX3. Pt was up for lunch and dinner for meals after PT coby 1PA FWW. Pt would use urinal frequently and would fall asleep with himself intact with urinal. Pt stated that he had not had a BM in a few days but did not want a stool softener. Pt c/o 04/24 bilateral arm pain but did not want any pain medication for it. Addendum: 11/14/16 at 1737 by BRITANY HILTON RN Changed two dressings on right arm where skin tears are present. Changed dressing on left arm where another skin tear is present.
== END 2016-11-15 01:43 | disposition admitted as inpatient to this hospital (09) | DRG 378 ==
LOC: SED 12:13 → MPC 16:07
PROVIDERS: ADMIT Family Medicine; ATTEND Internal Medicine
DX: K92.2 Gastrointestinal hemorrhage, unspecified (principal); I24.8 Other forms of acute ischemic heart disease; D64.89 Other specified anemias; I50.9 Heart failure, unspecified